=== PATIENT | female | born 1990 | race Caucasian/White ===

== ENCOUNTER 2019-11-25 11:48 | Emergency (ER) | payer SELFPAY ==
--- NOTE | 2019-11-25 11:52 | XR_ITS ---
WS: [id number] EXAM: RIGHT HIP: 2 VIEWS DATE OF EXAMINATION: 11/25/2019, 1335 hours COMPARISON: None. HISTORY: Patient is 29 years old with right hip pain. FINDINGS: The right hip joint is normal in appearance. No fracture, lytic or blastic process is seen. There are findings of minimal arthritis within the right SI joint. No soft tissue abnormality is seen. Enlarge d body habitus demonstrated. XR/XR hip RT 2-3V wo/w pel* [id number] IMPRESSION: Normal appearance to the right hip. No acute bony abnormality. Minimal arthriti s right hip joint. Enlarged body habitus.
[2019-11-25 12:01] VITALS: BP 118/63; PULSE 78; RESP 17; TEMP 36.7; O2SAT 98; BMI 40.7
--- NOTE | 2019-11-25 12:36 | W.ED.EXTPRO ---
HPI - Extremity Problem General: Chief complaint: Extremity Problem,Nontraumatic Stated complaint: r hip pain/losing feeling in leg Time Seen by Provider: 11/25/19 12:35 History of Present Illness: HPI Narrative: 29-year-old female patient presents to the emergency department with complaints of right hip pain. She reports hip pain since April, sustained a chip fracture . [facility] has been in [place] due to insurance reasons. Recently returned. She denies recent trauma or injury. [facility] was cleaning the house today when pain became too bad to tolerate. Reports prescription of Tylenol No. 3 has ended and is requesting medication for the pain. States pain has not changed. She reports since return to [place], she does not have money or insurance for medication. MD Complaint: extremity pain (Right hip) Onset (ago): month(s) (8 months) Pain Consistency: constant Location: right and lower extremity Severity scale (1-10): 5 Quality: stabbing and aching Radiation: none Relieving factors: immobilization and rest Exacerbating factors: range of motion and weight bearing Associated symptoms: Reports no associated symptoms; Deny chest pain or fever(s) Review of Systems General: Reports: 10 or more systems reviewed and unremarkable except in HPI and below Const: Denies: fever(s), chills or diaphoresis Eyes: Denies: blurry vision or eye redness ENMT: Denies: throat pain, dental pain or disequilibrium Card: Denies: chest pain, palpitations or irregular heart rhythm Resp: Denies: dyspnea, productive cough, non-productive cough or wheezing GI: Denies: abdominal pain, nausea or vomiting : Denies: difficulty voiding or dysuria Musc: Denies: back pain Skin/Breast: Denies: erythema or skin tenderness Neuro: Denies: headache(s), weakness in extremities or behavioral changes Tye/Lymph: Denies: easy bruising [facility] ED Female Reproductive History: Date of last menstrual period: 11/25/19 Physical Exam Const: COMMON NORMALS: no acute distress, patient oriented x3, healthy appearing and alert GENERAL APPEARANCE: cooperative, comfortable and well hydrated HENMT: COMMON NORMALS: normocephalic, Normal external nose present and moist oral mucous membranes HEAD & SCALP: normocephalic NOSE: Normal external nose present Eye: COMMON NORMALS: Equal, round and reactive pupils present and EOMs intact bilaterally GENERAL EYE: appearance normal, both eyes and all related structures PUPIL: Yes Equal, round and reactive pupils present Neck/C-Spine: COMMON NORMALS: full ROM and no lymphadenopathy GENERAL: Yes normal visual inspection and Yes trachea midline CERVICAL SPINE: Yes cervical ROM normal Lymph: LYMPHATIC: no lymphadenopathy noted Chest: COMMONS NORMALS: normal inspection of the chest Resp: COMMON NORMALS: normal respiratory effort and clear to auscultation bilaterally AUSCULTATION: clear to auscultation bilaterally Cardio: COMMON NORMALS: regular rhythm, S1 normal heart sound present and S2 normal heart sound present RHYTHM: regular rhythm HEART SOUNDS: S1 normal heart sound present and S2 normal heart sound present GI: COMMON NORMALS: Soft to palpation and non-tender INSPECTION: Yes normal to inspection PALPATION: Yes Soft to palpation : COMMON NORMALS: Yes no CVA tenderness BLADDER/KIDNEY EXAM: Yes no CVA tenderness Back/Pelvis: COMMON NORMALS: no CVA tenderness and thoracic and lumbar spine normal to inspection THORACIC SPINE/UPPER BACK: Yes normal to inspection, No pain with ROM and No thoracic spinal tenderness LUMBAR SPINE/LOWER BACK: Yes normal to inspection, No pain with ROM and No lumbar spinal tenderness SACROILIAC JOINTS: Yes SI joints normal OTHER: Negative pain to the SI joints, negative radiculopathy pain Extremity: COMMON NORMALS: normal to inspection and capillary refill normal RIGHT LOWER EXTREMITY: Yes hip joint Right hip: Yes inspection (Normal), Yes palpation (Lateral), Yes ROM (Limited abduction, flexion secondary to pain) and Yes neurovascular exam (Intact distally, negative right knee pain) Neuro: COMMON NORMALS: patient oriented x3 and no focal motor deficits SENSORIUM/ORIENTATION: Yes alert Psych: COMMON NORMALS: mental status grossly normal, Normal thought process present and cooperative ACTIVITY/MOTOR BEHAVIOR: Yes appropriate eye contact THOUGHT PROCESS: Normal thought process present Skin: COMMON NORMALS: no rashes or lesions noted and turgor normal GENERAL SKIN EXAM: no rashes or lesions noted and turgor normal Course Vital Signs: Vital signs: Vital Signs Temperature 97.6 F 11/25/19 14:35 Pulse Rate 84 11/25/19 14:35 Respiratory Rate 16 11/25/19 14:35 Blood Pressure 144/78 11/25/19 14:35 Pulse Oximetry 100 11/25/19 14:35 MDM - Extremity (Nontraumatic) Differential Diagnosis: Extremity Problem Differential Diagnosis: Likely herpes zoster, cellulitis (septic arthritis) and superficial thrombophlebitis Lab Data: Labs: Lab Results 11/25/19 Range/Units 13:00 Urine HCG, Qual Negative (Negative) Imaging Data^: Xray Ortho: Radiologist's impression: atient: Magdalena Mccelllan #: [id number] : 1990Acct#:[id number] Age/Sex: 29 / FADM Date: 11/25/19 Loc: ERRoom/Bed: Attending Dr: Ordering Provider/Ordering MD: Isaac Nava MD Date of Service: 11/25/19 Procedure(s): XR hip RT 2-3V wo/w pel* [id number] Accession Number(s): [id number] Report Number: [id number] WS: [id number] EXAM: RIGHT HIP: 2 VIEWS DATE OF EXAMINATION: 11/25/2019, 1335 hours COMPARISON: None. HISTORY: Patient is 29 years old with right hip pain. FINDINGS: The right hip joint is normal in appearance. No fracture, lytic or blastic process is seen. There are findings of minimal arthritis within the right SI joint. No soft tissue abnormality is seen. Enlarged body habitus demonstrated. XR/XR hip RT 2-3V wo/w pel* [id number] IMPRESSION: Normal appearance to the right hip. No acute bony abnormality. Minimal arthritis right hip joint. Enlarged body habitus. Dictated By:Alvarado Meredith MD Signed By:Alvarado Meredithigned Date/Time:11/25/19 1347 Discharge Plan Discharge Patient Disposition: Home Clinical Impression: Arthritis Chronic hip pain Qualifiers: Laterality: right Qualified Code(s): M25.551 - Pain in right hip Condition: Stable Prescriptions: New ibuprofen 800 mg tablet 800 mg PO TID PRN (Reason: pain) Qty: 20 RF: 0 No Action citalopram 40 mg tablet 40 mg PO DAILY RF: 0 dextroamphetamine-amphetamine 20 mg capsule,extended release 24hr 20 mg PO DAILY RF: 0 trazodone 100 mg Tablet 100 - 200 mg PO DAILY PRN (Reason: Sleep) RF: 0 montelukast 10 mg tablet 10 mg PO DAILY RF: 0 Symbicort 80-4.5 mcg/actuation Hfa Aerosol Inhaler See Rx Instructions .ROUTE .COMPLEX RF: 0 Referrals: Dennis Burnett MD [Primary Care Provider] - Discharge Diet: Usual diet Discharge Activity: Resume usual activity Patient Instructions: Osteoarthritis (ED), Arthralgia (ED) Activity Restrictions/Additional Instructions: Take ibuprofen with food as needed for pain May apply ice or warm moist heat to the affected area, right hip as needed for pain You will need to follow-up with your primary care for evaluation of chronic right hip pain Return to the emergency department if you develop fever, worsening right hip pain or discoloration or swelling of the right lower extremity Discharge Date/Time: 11/25/19 14:36 Coding Level of Care Code ED Supply Service Worker for Chg Fwd Exam Comprehensive
[2019-11-25 14:18] VITALS: BP 142/78; PULSE 63; RESP 16; TEMP 36.4; O2SAT 98
[2019-11-25 14:35] VITALS: BP 144/78; PULSE 84; RESP 16; TEMP 36.4; O2SAT 100
--- NOTE | 2019-11-27 13:58 | DCPLANNER ---
manager utilization management had message to speak with patient about getting a primary care physician. manager utilization management spoke with patient, and she stated that she did not have insurance, and could not afford to go to the doctor. manager utilization management offered to send patient the senior financial reporting accountant for the hospital and primary care. Patient stated that she would like to have the applications sent to her. Patient stated that she would fill out the applications and turn them back in. manager utilization management told patient that if she changed her mind and wanted to be set up with a primary care, that director case would be happy to help patient with that.
== END 2019-11-25 14:36 | disposition home or self-care (01) ==
PROVIDERS: Emergency Provider Nurse Practitioner Family; PCP Family Medicine
DX: M16.11 Unilateral primary osteoarthritis, right hip (principal); G89.29 Other chronic pain
CPT/HCPCS: 12345; 73502; 81025; 99282; 99283

== ENCOUNTER 2021-04-11 07:56 | Emergency (ER) | payer BC, MEDICAID, SELFPAY ==
[2021-04-11 08:00] VITALS: BP 130/99; PULSE 110; RESP 22; TEMP 37.1; O2SAT 96; BMI 47.2
--- NOTE | 2021-04-11 08:19 | XRR_ITS ---
PROCEDURE INFORMATION: Exam: XR Chest Exam date and time: 04/11/2021 8:19 AM Age: 30 years old Clinical indication: Cough and dyspnea; Additional info: Cough/dyspnea TECHNIQUE: Imaging protocol: XR of the chest. Views: 1 view. COMPARISON: CR Chest 1 [place] [id number] 01/28/2019 5:39 PM FINDINGS: Lungs: Unremarkable. No consolidation. Pleural spaces: Unremarkable. No pleural effusion. No pneumothorax. Heart/Mediastinum: Unremarkable. No cardiomegaly. Bones/joints: Unremarkable. XR/XR chest 1V portable [id number] IMPRESSION: No acute findings.
--- NOTE | 2021-04-11 08:22 | W.ED.COVID ---
HPI - COVID General: Chief Complaint: Shortness of Breath/Dyspnea Stated Complaint: sob Time Seen by Provider: 04/11/21 07:58 Triage information: Has fever, cough or shortness of breath. No known COVID + exposure last 14 days History of Present Illness: HPI Narrative: 30 year old female presents with shortness of breath. Has been going on for 3 days. Reports coughing, body aches, fatigue, nausea, and dry heaving. Denies sore throat and fever. Has not had COVID, no known COVID exposures. Has had COVID vaccine, has not had booster. Reports having asthma and has been taking her inhaler. Denies smoking. Prior covid testing: unknown if previously tested COVID 19 common symptoms: positive productive cough, dyspnea, fatigue, body aches and nausea; negative fever(s), throat pain, nasal congestion, vomiting or diarrhea COVID 19 other sytmptoms: negative chest pain COVID Results: SARS-CoV-2 (PCR) Detected (NOT DETECT) A 04/11/21 08:44 04/11/21 Coronavirus Type 229E (PCR) Not detected (NOT DETECT) 04/11/21 08:44 04/11/21 Review of Systems Const: Reports: body aches and fatigue; Denies: fever(s) ENMT: Reports: nasal discharge; Denies: throat pain or nasal congestion Card: Denies: chest pain or edema Resp: Reports: dyspnea and productive cough; Denies: hemoptysis GI: Reports: nausea; Denies: abdominal pain, vomiting, hematemesis, coffee ground emesis, diarrhea, constipation, bloating, hematochezia or melena : Denies: flank pain, difficulty voiding, dysuria, urinary frequency or urinary urgency Skin/Breast: Denies: rash or pruritus PFS ED PFSH: Medical History (Updated 04/13/21 @ 05:18 by Philip West DO) Asthma Borderline personality disorder Cocaine use disorder, severe, in sustained remission COVID Generalized anxiety disorder Major depressive disorder, recurrent, moderate Psychiatric care Social History Smoking and tobacco status: never smoked Alcohol intake: never Current gender identity: Female Female Reproductive History: Date of last menstrual period: 11/25/19 Physical Exam Const: COMMON NORMALS: no acute distress GENERAL APPEARANCE: cooperative and comfortable ORIENTATION/CONSCIOUSNESS: Yes awake, Yes oriented to person, Yes oriented to place and Yes oriented to time HENMT: COMMON NORMALS: normocephalic, atraumatic and hearing grossly normal bilaterally HEAD & SCALP: normocephalic and atraumatic Neck/C-Spine: COMMON NORMALS: no JVD Resp: COMMON NORMALS: normal respiratory effort, No retractions, No use of accessory muscles and clear to auscultation bilaterally AUSCULTATION: clear to auscultation bilaterally Cardio: COMMON NORMALS: no JVD, regular rate, regular rhythm and No murmurs present (Cardio) RATE: regular rate RHYTHM: regular rhythm GI: COMMON NORMALS: Soft to palpation and No hepatosplenomegaly present AUSCULTATION: Yes normoactive bowel sounds PALPATION: Yes Soft to palpation, No Tenderness to palpation present (GI), No Guarding due to palpation present (GI) and Yes No hepatosplenomegaly present Extremity: COMMON NORMALS: normal to inspection, capillary refill normal, no clubbing, cyanosis or edema, no calf tenderness and no pedal edema Neuro: SENSORIUM/ORIENTATION: Yes oriented to person, Yes oriented to place and Yes oriented to time Skin: COMMON NORMALS: no rashes or lesions noted GENERAL SKIN EXAM: no rashes or lesions noted Course Vital Signs: Vital signs: Vital Signs Temperature 98.8 F 04/11/21 08:00 Pulse Rate 100 04/11/21 11:00 Respiratory Rate 21 H 04/11/21 11:00 Blood Pressure 175/75 04/11/21 11:00 Pulse Oximetry 94 04/11/21 11:00 MDM - COVID MDM Narrative: Medical decision making narrative: Discharge home with dexamethasone and albuterol. At the time of discharge presumptive diagnosis was asthma exacerbation and clinical diagnosis of COVID-19. COVID-19 result returned later and was confirmed. We will have case management set her up for outpatient monoclonal antibodies. Lab Data: Labs: Lab Results 04/11/21 04/11/21 04/11/21 08:44 08:44 09:13 WBC 5.3 10^3/uL 10^3/ uL (4.0-10.0) RBC 4.43 10^6/uL 10^6 /uL (4.1-5.3) Hgb 12.8 g/dL g/dL (11.5-15.3) Hct 39.2 % % (37.0-47.0) MCV 88.5 fl fl (81-99) MCH 28.9 pg pg (28.0-34.0) MCHC 32.7 g/dL g/dL (30.0-36.0) RDW 13.7 % % (12.1-15.1) Plt Count 220 10^3/cmm 10^3 /cmm (130-400) MPV 10.1 fL fL (7.4-10.4) Neut % (Auto) 70.1 % % Lymph % (Auto) 12.0 % % [place] % (Auto) 8.1 % % Eos % (Auto) 9.0 % % Baso % (Auto) 0.6 % % Neut # (Auto) 3.74 10^3/uL 10^3 /uL (1.8-7.7) Lymph # (Auto) 0.6 10^3/uL L 10^ 3/uL (0.8-4.8) [place] # (Auto) 0.4 10^3/uL 10^3/ uL (0.2-0.9) Eos # (Auto) 0.5 10^3/uL 10^3/ uL (0.0-0.8) Baso # (Auto) 0.0 10^3/uL 10^3/ uL (0.0-0.1) Nucleated RBC % (a uto) 0 % % Nucleated RBCs # 0.0 /100WBC /100W BC Specimen Type Arterial Sample Site Radial, left ABG pH 7.48 H (7.35-7.45) ABG pCO2 30.2 mmHg L mmHg (35-45) ABG pO2 65.1 mmHg L mmHg (80.0-100.0) ABG HCO3 22.6 mmol/L mmol/ L (22-26) ABG O2 Saturation 95.6 ABG Base Excess 0.0 mmol/L mmol/L (-2.0-2.0) Suhail Test Pos A-a O2 Gradient 6.1 mmHg mmHg (5-10) Hematocrit 38.3 % % (37-47) Hgb O2 Saturation 93.9 % L % (95-100) Carboxyhemoglobin 1.0 %THgb %THgb (0.4-20.1) Methemoglobin 0.7 % % (0.4-1.5) Total Hemoglobin 12.5 g/dL g/dL (12-16) Sodium 139.0 mmol/L mmol /L (131-143) Potassium 3.4 mmol/L L mmol /L (3.5-5.0) Glucose 104.0 mg/dL mg/dL (70-115) Ionized Calcium 1.2 mmol/L mmol/L (1.1-1.4) O2 Delivery Device Room air FiO2 21.0 % % Spray Maker ID [id number] Coronavirus 229E ( PCR) Not detected (NOT DETECT) SARS-CoV-2 (PCR) Detected A (NOT DETECT) COVID Results: SARS-CoV-2 (PCR) Detected (NOT DETECT) A 04/11/21 08:44 04/11/21 Coronavirus Type 229E (PCR) Not detected (NOT DETECT) 04/11/21 08:44 04/11/21 Discharge Plan Discharge Patient Disposition: Home Clinical Impression: Asthma, Clinical diagnosis of COVID-19 Condition: Stable Prescriptions: New dexamethasone 6 mg tablet 6 mg PO DAILY Qty: 7 RF: 0 albuterol sulfate 90 mcg/actuation HFA aerosol inhaler 2 inh INHALATION Q4H PRN (Reason: shortness of breath or wheezing) Qty: 18 RF: 0 Discontinued methylprednisolone [Medrol (Vivek)] 4 mg tablets,dose pack See Rx Instructions PO PER PKG DIR Qty: 21 RF: 0 No Action trazodone 100 mg tablet 100 mg PO .HS PRN (Reason: Sleep) Qty: 30 RF: 3 citalopram 40 mg tablet 40 mg PO DAILY 30 Days Qty: 30 RF: 3 ferrous fumarate 325 mg (106 mg iron) tablet 325 mg PO DAILY RF: 0 montelukast 10 mg tablet 10 mg PO DAILY RF: 0 Symbicort 80-4.5 mcg/actuation Hfa Aerosol Inhaler See Rx Instructions .ROUTE .COMPLEX RF: 0 Discharge Orders: Discharge ED (Routine); Ordered 04/11/21 Ordered By: Philip West Other Ambulatory Orders: Request for MCA (Routine) Timeframe: 1 Day Facility: [facility] - Location[facility] Ordered By: Philip West Discharge Diet: Usual diet Discharge Activity: Limit activity as instructed Patient Instructions: Opioid Safety Stand Alone Forms: Work/School Release Coding Level of Care Code ED Regulatory Affairs Director for Chg Fwd Exam Comprehensive
[2021-04-11 09:08] VITALS: O2SAT 96; O2SAT 98
--- NOTE | 2021-04-11 09:12 | PC.NURSE ---
PT PLACED ON CONTINUOUS SPO2, NIBP, AND CM.
[2021-04-11 09:24] LABS: ABG PCO2 30.2 mmHg (35-45); ABG PH Result 7.48 (7.35-7.45); Alveolar-Arterial Oxygen Gradi 6.1 mmHg (5-10); Arterial Blood Gas Hematocrit 38.3 % (37-47); Blood Gas Allen Test Pos; Blood Gas Operator Identificat AMH; Blood Gas Sample Site Radial, left; Blood Gas Sample Type Arterial; HCO3 ABG 22.6 mmol/L (22-26); HGB O2 Sat 93.9 % (95-100); Ionized Calcium Level - ABG 1.2 mmol/L (1.1-1.4); Methemoglobin 0.7 % (0.4-1.5); Oxygen Device ROOM AIR; Oxygen Saturation ABG 95.6; PO2 ABG 65.1 mmHg (80.0-100.0); Potassium Level - ABG 3.4 mmol/L (3.5-5.0); Total Hemoglobin 12.5 g/dL (12-16)
[2021-04-11 09:33] LABS: Basophils % 0.6 %; Eosinophils # 0.5 10^3/uL (0.0-0.8); Hematocrit 39.2 % (37.0-47.0); Hemoglobin 12.8 g/dL (11.5-15.3); Lymphocytes # 0.6 10^3/uL (0.8-4.8); Mean Corpuscular HGB Conc 32.7 g/dL (30.0-36.0); Mean Corpuscular Hemoglobin 28.9 pg (28.0-34.0); Mean Corpuscular Volume 88.5 fl (81-99); Mean Platelet Volume 10.1 fL (7.4-10.4); Monocytes # 0.4 10^3/uL (0.2-0.9); Monocytes % 8.1 %; Neutrophils # 3.74 10^3/uL (1.8-7.7); Neutrophils % 70.1 %; Nucleated Red Blood Cells % 0 %; Platelet Count 220 10^3/cmm (130-400); Red Blood Count 4.43 10^6/uL (4.1-5.3); Red Cell Distribution Width 13.7 % (12.1-15.1); White Blood Count 5.3 10^3/uL (4.0-10.0)
[2021-04-11 10:00] VITALS: BP 122/72; PULSE 102; RESP 21; O2SAT 96
[2021-04-11 11:00] VITALS: BP 175/75; PULSE 100; RESP 21; O2SAT 94
[2021-04-11 11:17] LABS: Adenovirus Not Detected (NOT DETECT); Chlamydia Pneumoniae Not Detected (NOT DETECT); Coronavirus 229E,HKU1,NL63,OC4 Not Detected (NOT DETECT); Human Metapneumovirus Not Detected (NOT DETECT); Human Rhinovirus/Enterovirus Not Detected (NOT DETECT); Influenza A Not Detected (NOT DETECT); Influenza A H1 Not Detected (NOT DETECT); Influenza A H1-2009 Not Detected (NOT DETECT); Influenza A H3 Not Detected (NOT DETECT); Influenza B Not Detected (NOT DETECT); Mycoplasma Pneumoniae Not Detected (NOT DETECT); Parainfluenza Virus Type 1 Not Detected (NOT DETECT); Parainfluenza Virus Type 2 Not Detected (NOT DETECT); Parainfluenza Virus Type 3 Not Detected (NOT DETECT); Parainfluenza Virus Type 4 Not Detected (NOT DETECT); Respiratory Syncytial Virus A Not Detected (NOT DETECT); Respiratory Syncytial Virus B Not Detected (NOT DETECT); SARS-COV-2 Detected (NOT DETECT)
[2021-04-11] MEDS: dexamethasone 10 mg/mL INJ IVP (11:18)
--- NOTE | 2021-04-20 15:35 | DCPLANNER ---
manager medicare had message to speak with patient at this time about getting established with a primary care physician.
== END 2021-04-11 11:26 | disposition home or self-care (01) ==
PROVIDERS: Emergency Provider Family Medicine
DX: U07.1 COVID-19 (principal); J45.909 Unspecified asthma, uncomplicated
CPT/HCPCS: 36600; 71045; 80051; 82330; 82805; 85025; 87635; 96374; 99284; J1100

== ENCOUNTER 2021-05-02 19:16 | Emergency (ER) | payer BC, MEDICAID, SELFPAY ==
[2021-05-02 19:38] VITALS: BP 136/77; PULSE 99; RESP 20; TEMP 36.7; O2SAT 95
--- NOTE | 2021-05-02 20:23 | ED_ITS ---
HPI - COVID General: Chief Complaint: COVID symptoms Stated Complaint: covid +,abd pain that goes to [facility] back Time Seen by Provider: 05/02/21 20:14 Triage information: Has fever, cough or shortness of breath . No known COVID + exposure last 14 days History of Present Illness: Patient is a 30-year-old female who comes to the ED with abdominal pain. Patient has a past medical history of asthma, anxiety, depression. Patient was seen here in the ED back on April 11 and diagnosed with COVID-19. Covid symptoms are improving but she still has a little bit of nasal congestion, cough and mild shortness of breath. Patient says the abdominal pain started approximately 3 days ago. Pain is located in the right lower quadrant. She rates the pain currently 9 out of 10. She has had nausea since onset of symptoms and a decreased appetite. Denies any emesis. Patient did state that she was recently diagnosed with an STD, which she thinks was trichomonas and was put on a 7-day course of antibiotic. Patient took her last dose of antibiotic yesterday. Her menstrual period just ended yesterday May 01. COVID 19 common symptoms: positive non-productive cough, dyspnea (Continued SOB since 04/11 when diagnosed with Covid), nausea and diarrhea (chronic issue-no acute change); negative fever(s), chills, productive cough, fatigue, headache(s), throat pain, nasal congestion or vomiting COVID 19 other sytmptoms: negative chest pain COVID Results: SARS-CoV-2 (PCR) Detected (NOT DETECT) A 04/11/21 08:44 04/11/21 Coronavirus Type 229E (PCR) Not detected (NOT DETECT) 04/11/21 08:44 04/11/21 Review of Systems Const: Denies: fever(s), chills or fatigue Eyes: Denies: change in vision or eye discomfort ENMT: Denies: throat pain, odynophagia, nasal discharge or nasal congestion Card: Denies: chest pain, palpitations, edema, swelling of feet/ankles, dyspnea on exertion or orthopnea Resp: Reports: dyspnea (Continued SOB since 04/11 when diagnosed with Covid) and non-productive cough; Denies: productive cough GI: Reports: abdominal pain, nausea and diarrhea (chronic issue-no acute change); Denies: vomiting, constipation or hematochezia : Denies: flank pain, dysuria, hematuria, vaginal bleeding or vaginal discharge Musc: Denies: neck pain, back pain or extremity swelling Skin/Breast: Denies: rash or new lesions Neuro: Denies: headache(s), numbness in extremities or weakness in extremities PFSH ED PFSH: Medical History Asthma Borderline personality disorder Cocaine use disorder, severe, in sustained remission COVID Generalized anxiety disorder Major depressive disorder, recurrent, moderate Psychiatric care Social History Smoking and tobacco status: never smoked Alcohol intake: never Current gender identity: Female Female Reproductive History: Date of last menstrual period: 11/25/19 Physical Exam Const: COMMON NORMALS: patient oriented x3 GENERAL APPEARANCE: cooperative HENMT: COMMON NORMALS: normocephalic HEAD & SCALP: normocephalic MOUTH: Normal oral and palatal mucosa present THROAT: posterior oropharynx normal and uvula midline Eye: GENERAL EYE: appearance normal, both eyes and all related structures Neck/C-Spine: COMMON NORMALS: supple GENERAL: Yes normal visual inspection Resp: COMMON NORMALS: normal respiratory effort, No retractions, No use of accessory muscles and clear to auscultation bilaterally AUSCULTATION: clear to auscultation bilaterally Cardio: COMMON NORMALS: regular rate, regular rhythm, S1 normal heart sound present, S2 normal heart sound present, No gallops present (Cardio), No clicks present (Cardio), No murmurs present (Cardio) and Peripheral pulses 2+ throughout RATE: regular rate RHYTHM: regular rhythm HEART SOUNDS: S1 normal heart sound present and S2 normal heart sound present PERIPHERAL PULSES: Peripheral pulses 2+ throughout GI: COMMON NORMALS: Normal to inspection, nondistended, normoactive bowel sounds present, Soft to palpation and no masses INSPECTION: Yes central obesity PALPATION: Yes Soft to palpation and Yes Tenderness to palpation present (GI) Details: RLQ (Positive McBurney's point) : COMMON NORMALS: Yes no CVA tenderness BLADDER/KIDNEY EXAM: Yes no CVA tenderness Back/Pelvis: COMMON NORMALS: no CVA tenderness Extremity: GENERAL: Yes normal exam except as noted Neuro: COMMON NORMALS: patient oriented x3 GAIT: Yes Normal gait present Skin: GENERAL SKIN EXAM: dry skin Course 2 Vital Signs: Vital signs: Vital Signs Temperature 98.5 F 05/02/21 22:43 Pulse Rate 89 05/02/21 22:43 Respiratory Rate 18 05/02/21 22:43 Blood Pressure 135/79 05/02/21 22:43 Pulse Oximetry 99 05/02/21 22:43 [facility] - COVID Medical Decision Making Patient is a 30-year-old female comes to the ED with abdominal pain, nausea and vomiting. Patient also was diagnosed with COVID-19 on April 11 and is still having a little bit of cough and shortness of breath. Vitals stable. Exam of patient shows a nontoxic appearing patient in no acute distress. She does have some periumbilical tenderness upon palpation. Labs were unremarkable. hCG negative. CT of abdomen pelvis showed no acute intra-abdominal findings, but it did highlight possible atelectasis of bilateral lower lungs. Patient diagnosed with abdominal pain and upper respiratory symptoms. She was discharged home with a prescription for azithromycin and Zofran for nausea. Return to ED precautions given. Follow-up with PCP in 5 to 7 days reevaluation. Patient understood and agreed with plan. Lab Data I reviewed the patient's lab results. : 05/02/21 21:06 05/02/21 21:06 Radiology Impressions Abdomen/Pelvis CT 05/02/21 20:57 IMPRESSION: 1. No acute intra-abdominal findings. 2. Minimal nonspecific opacity in both lung bases. Probable subsegmental atelectasis. Atypical infection is not excluded. Laboratory Results WBC 7.3 10^3/uL (4.0-10.0) 05/02/21 21:06 RBC 4.39 10^6/uL (4.1-5.3) 05/02/21 21:06 Hgb 12.6 g/dL (11.5-15.3) 05/02/21 21:06 Hct 39.2 % (37.0-47.0) 05/02/21 21:06 MCV 89.3 fl (81-99) 05/02/21 21:06 MCH 28.7 pg (28.0-34.0) 05/02/21 21:06 MCHC 32.1 g/dL (30.0-36.0) 05/02/21 21:06 RDW 14.1 % (12.1-15.1) 05/02/21 21:06 Plt Count 228 10^3/cmm (130-400) 05/02/21 21:06 MPV 10.3 fL (7.4-10.4) 05/02/21 21:06 Neut % (Auto) 53.2 % 05/02/21 21:06 Lymph % (Auto) 28.4 % 05/02/21 21:06 [place] % (Auto) 10.2 % 05/02/21 21:06 Eos % (Auto) 7.5 % 05/02/21 21:06 Baso % (Auto) 0.4 % 05/02/21 21:06 Neut # (Auto) 3.88 10^3/uL (1.8-7.7) 05/02/21 21:06 Lymph # (Auto) 2.1 10^3/uL (0.8-4.8) 05/02/21 21:06 [place] # (Auto) 0.7 10^3/uL (0.2-0.9) 05/02/21 21:06 Eos # (Auto) 0.6 10^3/uL (0.0-0.8) 05/02/21 21:06 Baso # (Auto) 0.0 10^3/uL (0.0-0.1) 05/02/21 21:06 Nucleated RBC % (auto) 0 % 05/02/21 21:06 Nucleated RBCs # 0.0 /100WBC 05/02/21 21:06 Sodium 138 mmol/L (136-145) 05/02/21 21:06 Potassium 3.5 mmol/L (3.5-5.1) 05/02/21 21:06 Chloride 104 mmol/L (98-107) 05/02/21 21:06 Carbon Dioxide 19 mmol/L (22-29) L 05/02/21 21:06 Anion Gap 18.5 (5-19) 05/02/21 21:06 BUN 11 mg/dL (6-20) 05/02/21 21:06 Creatinine 0.7 mg/dL (0.5-0.9) 05/02/21 21:06 GFR Calculation 98.3 mL/min (90-130) 05/02/21 21:06 Glucose 105 mg/dL (65-115) 05/02/21 21:06 Calculated Osmolality 286 mOsm/kg (285-295) 05/02/21 21:06 Calcium 9.1 mg/dL (8.5-10.5) 05/02/21 21:06 Total Bilirubin 0.2 mg/dL (0.15-1.2) 05/02/21 21:06 AST 19 U/L (0-32) 05/02/21 21:06 ALT 21 U/L (0-33) 05/02/21 21:06 Alkaline Phosphatase 81 IU/L (35-105) 05/02/21 21:06 Total Protein 6.8 g/dL (6.6-8.7) 05/02/21 21:06 Albumin 4.3 g/dL (3.5-5.2) 05/02/21 21:06 Globulin 2.5 g/dL (1.3-4.6) 05/02/21 21:06 Lipase 24 U/L (13-60) 05/02/21 21:06 HCG, Qual Negative (Negative) 05/02/21 21:06 Urine Color Yellow (Yellow) 05/02/21 21:10 Urine Appearance Clear (CLEAR) 05/02/21 21:10 Urine pH 5 (5-7) 05/02/21 21:10 Ur Specific [place] 1.030 (1.005-1.030) 05/02/21 21:10 Urine Protein Neg (Negative) 05/02/21 21:10 Urine Glucose (UA) Norm (Normal) 05/02/21 21:10 Urine Ketones Negative (Negative) 05/02/21 21:10 Urine Blood Neg (Negative) 05/02/21 21:10 Urine Nitrate Negative (Negative) 05/02/21 21:10 Urine Bilirubin Neg (Negative) 05/02/21 21:10 Urine Urobilinogen 1 mg/dL (Negative) H 05/02/21 21:10 Ur Leukocyte Esterase Negative (Negative) 05/02/21 21:10 SARS-CoV-2 (PCR) Detected (NOT DETECT) A 04/11/21 08:44 04/11/21 Coronavirus Type 229E (PCR) Not detected (NOT DETECT) 04/11/21 08:44 04/11/21 Discharge Plan Discharge Patient Disposition: Home Clinical Impression: Upper respiratory symptom Abdominal pain Qualifiers: Abdominal location: right lower quadrant Qualified Code(s): R10.31 - Right lower quadrant pain Condition: Stable Prescriptions: New azithromycin 250 mg tablet See Rx Instructions .ROUTE .COMPLEX Qty: 6 0RF Rx Instructions: take 500 mg today (day 1), then 250 mg for 4 days (days 2-5) ondansetron 4 mg tablet,disintegrating 4 mg PO Q8H PRN (Reason: nausea and vomiting) Qty: 20 0RF No Action trazodone 100 mg tablet 100 mg PO .HS PRN (Reason: Sleep) Qty: 30 3RF citalopram 40 mg tablet 40 mg PO DAILY 30 Days Qty: 30 3RF ferrous fumarate 325 mg (106 mg iron) tablet 325 mg PO DAILY 0RF montelukast 10 mg tablet 10 mg PO DAILY 0RF Symbicort 80-4.5 mcg/actuation Hfa Aerosol Inhaler See Rx Instructions .ROUTE .COMPLEX 0RF Rx Instructions: inhaled PT UNSURE OF DIRECTIONS, BUT HAS DIRECTIONS AT HOME. dexamethasone 6 mg tablet 6 mg PO DAILY Qty: 7 0RF albuterol sulfate 90 mcg/actuation HFA aerosol inhaler 2 inh INHALATION Q4H PRN (Reason: shortness of breath or wheezing) Qty: 18 0RF Discharge Orders: Discharge ED (Routine); Ordered 05/02/21 Ordered By: Vinayak Lantigua Discharge Diet: Regular Discharge Activity: Resume usual activity Patient Instructions: Upper Respiratory Infection (ED), Abdominal Pain (ED) Activity Restrictions/Additional Instructions: Follow-up with medical provider as directed in 5 to 7 days reevaluation.Take medications as prescribed. Take [id number] Tylenol or Motrin for any pain. Remember to drink a lot of fluids and stay hydrated especially when sick. to the ER or your medical provider if condition worsens. Please read and understand discharge instructions. Thank you for choosing [facility] for your healthcare needs today. Please realize this is an emergency room and that we are providing you with a medical screening exam and this may not be complete and all inclusive of all the testing and or work up that you may need to determine your ailment or severity of your illness. It is very important that you follow up as instructed or that you return to the Emergency Department should you have concerns or if your condition changes or worsens in any way. Coding Level of Care Code ED Non Destructive Testing Supervisor for Chg Fwd Exam Comprehensive
--- NOTE | 2021-05-02 20:57 | CTR_ITS ---
PROCEDURE INFORMATION: Exam: CT Abdomen And Pelvis With Contrast Exam date and time: 05/02/2021 8:57 PM Age: 30 years old Clinical indication: Abdominal pain; Localized; Right lower quadrant (rlq); Prior surgery; Surgery date: 6+ months; Surgery type: C-sect; Patient HX: C/O rlq abd pain and nausea; Additional info: Rlq abdominal pain, nausea, decreased appetite TECHNIQUE: Imaging protocol: Computed tomography of the abdomen and pelvis with contrast. Radiation optimization: All CT scans at this facility use at least one of these dose optimization techniques: automated exposure control; mA and/or kV adjustment per patient size (includes targeted exams where dose is matched to clinical indication); or iterative reconstruction. Contrast material: OMNI 300; Contrast volume: 95 ml; Contrast route: INTRAVENOUS (IV); COMPARISON: CR XR hip RT 2-3V wo/w pel* [id number] 11/25/2019 1:33 PM RADIATION DOSE METRICS: Total DLP (mGy-cm): 1910.6 FINDINGS: Lungs: There is minimal nonspecific opacity in both lung bases. Liver: The liver is normal. Gallbladder and bile ducts: The gallbladder is normal. There is no biliary dilation. Pancreas: The pancreas is unremarkable. Spleen: The spleen is unremarkable. Adrenal glands: The adrenal glands are unremarkable. Kidneys and ureters: The kidneys are unremarkable. No hydronephrosis or stones. No ureteral dilation. Stomach and bowel: The stomach is decompressed, preventing meaningful evaluation of wall thickness. The small bowel is nondilated. The colon is unremarkable. Appendix: The appendix is normal. Intraperitoneal space: There is no free air or significant intraperitoneal free fluid. Vasculature: The aorta is unremarkable. There is no aneurysm. The portal, splenic and superior mesenteric veins are patent. Lymph nodes: There is no lymphadenopathy in the retroperitoneum, mesentery, pelvis or inguinal regions. Urinary bladder: The urinary bladder is decompressed, preventing meaningful evaluation of wall thickness. Reproductive: The uterus is unremarkable. There is no adnexal mass or large cyst. Bones/joints: Unremarkable. No acute fracture. Soft tissues: The abdominal wall is intact. CT/CT abdomen pelvis w con* [id number] IMPRESSION: 1. No acute intra-abdominal findings. 2. Minimal nonspecific opacity in both lung bases. Probable subsegmental atelectasis. Atypical infection is not excluded.
[2021-05-02 21:09] VITALS: RESP 18
[2021-05-02 21:17] VITALS: RESP 18
[2021-05-02] MEDS: morphine 4 mg/mL SDV 1 mL IVP ×2 (21:17→22:33)
[2021-05-02] MEDS: sodium chloride 0.9% 500 ML 999 ML IV (21:18)
[2021-05-02] MEDS: ondansetron 2 mg/ML SDV 2 mL 4 MG IVP (21:18)
[2021-05-02 21:26] LABS: Basophils % 0.4 %; Eosinophils # 0.6 10^3/uL (0.0-0.8); Eosinophils % 7.5 %; Hematocrit 39.2 % (37.0-47.0); Hemoglobin 12.6 g/dL (11.5-15.3); Lymphocytes # 2.1 10^3/uL (0.8-4.8); Lymphocytes % 28.4 %; Mean Corpuscular HGB Conc 32.1 g/dL (30.0-36.0); Mean Corpuscular Hemoglobin 28.7 pg (28.0-34.0); Mean Corpuscular Volume 89.3 fl (81-99); Mean Platelet Volume 10.3 fL (7.4-10.4); Monocytes # 0.7 10^3/uL (0.2-0.9); Monocytes % 10.2 %; Neutrophils # 3.88 10^3/uL (1.8-7.7); Neutrophils % 53.2 %; Nucleated Red Blood Cells % 0 %; Platelet Count 228 10^3/cmm (130-400); Red Blood Count 4.39 10^6/uL (4.1-5.3); Red Cell Distribution Width 14.1 % (12.1-15.1); White Blood Count 7.3 10^3/uL (4.0-10.0)
[2021-05-02 21:39] LABS: Add Urine Microscopic? NO; Charge for UA Resulting for Rev
[2021-05-02 21:43] LABS: HCG, Serum Qual Negative (Negative)
[2021-05-02 21:43] LABS: Bilirubin Urine Neg (Negative); Blood Urine Neg (Negative); Glucose Urine UA Norm (Normal); Ketones Urine Negative (Negative); Leukocyte Esterase Urine Negative (Negative); Nitrate Urine Negative (Negative); Protein Urine Neg (Negative); Urine Appearance Clear (CLEAR); Urine Color Yellow (Yellow); Urobilinogen Urine 1 mg/dL (Negative); pH Urine 5 (5-7)
[2021-05-02 21:45] LABS: Alanine Aminotransferase 21 U/L (0-33); Albumin Level 4.3 g/dL (3.5-5.2); Alkaline Phosphatase 81 IU/L (35-105); Anion Gap 18.5 (5-19); Aspartate Amino Transferase 19 U/L (0-32); Blood Urea Nitrogen 11 mg/dL (6-20); Calcium 9.1 mg/dL (8.5-10.5); Carbon Dioxide 19 mmol/L (22-29); Chloride 104 mmol/L (98-107); Globulin 2.5 g/dL (1.3-4.6); Glomerular Filtration Rate 98.3 mL/min (90-130); Glucose 105 mg/dL (65-115); Lipase 24 U/L (13-60); Osmolality Calculated 286 mOsm/kg (285-295); Potassium 3.5 mmol/L (3.5-5.1); Sodium 138 mmol/L (136-145); Total Bilirubin 0.2 mg/dL (0.15-1.2); Total Protein 6.8 g/dL (6.6-8.7)
[2021-05-02] MEDS: iohexol 300 mg/mL 100 mL Btl IV (21:50)
[2021-05-02 22:33] VITALS: RESP 18
[2021-05-02 22:43] VITALS: BP 135/79; PULSE 89; RESP 18; TEMP 36.9; O2SAT 99
== END 2021-05-02 22:44 | disposition home or self-care (01) ==
PROVIDERS: Emergency Provider Physician Assistant
DX: R10.31 Right lower quadrant pain (principal); R05.9 Cough, unspecified; R06.00 Dyspnea, unspecified
CPT/HCPCS: 74177; 80053; 81003; 83690; 84703; 85025; 96374; 96375; 96376; 99284; J2270; J2405; J7040; Q9967

== ENCOUNTER 2021-06-18 18:24 | Emergency (ER) | payer BC, MEDICAID, SELFPAY ==
[2021-06-18] VITALS (14 sets, daily range): BP systolic 112–157; BP diastolic 56–94; PULSE 72–112; RESP 17–24; TEMP 37.9; O2SAT 91–98; BMI 47.0
--- NOTE | 2021-06-18 18:30 | XRR_ITS ---
PROCEDURE INFORMATION: Exam: XR Chest Exam date and time: 06/18/2021 5:48 PM Age: 31 years old Clinical indication: Cough and shortness of breath; Additional info: Sob/cough TECHNIQUE: Imaging protocol: XR of the chest. Views: 1 view. COMPARISON: CR XR chest 1V portable [id number] 04/11/2021 9:11 AM FINDINGS: Lungs: Faint ground-glass opacity is present in the right upper lobe. The lungs are otherwise clear. Pleural spaces: Unremarkable. No pleural effusion. No pneumothorax. Heart/Mediastinum: Unremarkable. No cardiomegaly. Bones/joints: Unremarkable. XR/XR chest 1V portable [id number] IMPRESSION: Possible early right upper lobe pneumonia.
--- NOTE | 2021-06-18 19:12 | ED_ITS ---
HPI - URI/Sore Throat General: Chief Complaint: Shortness of Breath/Dyspnea Stated Complaint: shortness of breath cough Time Seen by Provider: 06/18/21 18:27 Source: patient Mode of arrival: ambulatory Limitations: no limitations History of Present Illness: Patient is a 31-year-old female with a history of morbid obesity and asthma here for concerns of shortness of breath, cough, fevers, body aches, headache, and nasal congestion/sinus pain/pressure over the past 3 days. She has not sure how high her temperatures have gotten at home. She states symptoms started after a trip to [place]. Patient states her asthma is usually controlled with albuterol inhalers. She is not having any abdominal pain, vomiting, or diarrhea. No fevers. MD elicited complaint: fever, cough and nasal congestion Pertinent past history: asthma Onset (ago): day(s) Consistency: constant Description of mucous: clear Able to tolerate fluids by mouth: Yes Exacerbating factors: nothing Relieving factors: nothing Associated symptoms: Reports chills, fever(s), headache(s), nasal congestion and sinus pain; Deny abdominal pain, chest pain, diarrhea, ear or mastoid pain, nausea or vomiting Treatments prior to arrival: none Review of Systems Const: Reports: fever(s), chills and body aches Eyes: Denies: change in vision, blurry vision, blind spots, photophobia, floaters or seeing flashes ENMT: Reports: nasal congestion and sinus pain; Denies: throat pain, odynophagia, ear or mastoid pain or ear discharge Card: Reports: dyspnea on exertion; Denies: chest pain, palpitations, irregular heart rhythm, edema, swelling of feet/ankles, lightheadedness, syncope or pre-syncope Resp: Reports: dyspnea and non-productive cough; Denies: wheezing or hemoptysis GI: Denies: abdominal pain, nausea, vomiting or diarrhea : Denies: flank pain or dysuria Musc: Denies: neck pain, back pain, extremity pain or joint pain Skin/Breast: Denies: rash Neuro: Reports: headache(s); Denies: numbness in extremities, weakness in extremities, sensory changes or dizziness PFS ED PFSH: Medical History Asthma Borderline personality disorder Cocaine use disorder, severe, in sustained remission COVID Generalized anxiety disorder Major depressive disorder, recurrent, moderate Psychiatric care Social History Smoking and tobacco status: never smoked Alcohol intake: never Current gender identity: Female Female Reproductive History: Date of last menstrual period: 11/25/19 Physical Exam Const: COMMON NORMALS: patient oriented x3, no limitations and alert GENERAL APPEARANCE: cooperative and ill appearing NUTRITIONAL APPEARANCE: obese morbidly obese ORIENTATION/CONSCIOUSNESS: Yes awake, Yes oriented to person, Yes oriented to place and Yes oriented to time HENMT: COMMON NORMALS: normocephalic, atraumatic, hearing grossly normal bilaterally, external ears normal, EAC's normal, TM's normal bilaterally and Normal external nose present HEAD & SCALP: normal to inspection, normocephalic and atraumatic FACE & SINUS: sinus tenderness NOSE: Normal external nose present EXTERNAL EAR: Yes external ears normal and Yes no periauricular adenopathy EXTERNAL AUDITORY CANAL: EAC's normal TYMPANIC MEMBRANE: TM's normal bilaterally MOUTH: Normal oral and palatal mucosa present, lip normal and tongue normal THROAT: posterior oropharynx normal, tonsils normal and uvula midline Eye: COMMON NORMALS: Equal, round and reactive pupils present GENERAL EYE: appearance normal, both eyes and all related structures PUPIL: Yes Equal, round and reactive pupils present Neck/C-Spine: COMMON NORMALS: full ROM, no lymphadenopathy and no meningeal signs Chest: COMMONS NORMALS: normal inspection of the chest and normal palpation of entire chest wall Resp: EFFORT & INSPECTION: Yes able to speak in complete sentences, Yes tachypneic (at times; other times normal), No grunting, No stridor and No ret ractions AUSCULTATION: wheezes Cardio: COMMON NORMALS: regular rate and regular rhythm RATE: regular rate RHYTHM: regular rhythm GI: COMMON NORMALS: Normal to inspection, nondistended, normoactive bowel sounds present, Soft to palpation, non-tender, No hepatosplenomegaly present and no masses PALPATION: Yes Soft to palpation and Yes No hepatosplenomegaly present : COMMON NORMALS: Yes no CVA tenderness BLADDER/KIDNEY EXAM: Yes no CVA tenderness Back/Pelvis: COMMON NORMALS: no CVA tenderness Extremity: COMMON NORMALS: normal to inspection GENERAL: Yes normal exam except as noted Neuro: MARIBELL COMA SCALE: document GCS findings Maribell coma scale eye opening: Spontaneous [place] coma scale verbal response: Orientated Maribell coma scale motor response: Obey commands [place] coma scale total score: 15 COMMON NORMALS: patient oriented x3, moves all extremities, no focal motor deficits and no sensory deficits noted SENSORIUM/ORIENTATION: Yes alert, Yes oriented to person, Yes oriented to place and Yes oriented to time MENINGEAL SIGNS: Yes no meningeal signs Skin: COMMON NORMALS: no rashes or lesions noted GENERAL SKIN EXAM: no rashes or lesions noted Course Vital Signs: Vital signs: Vital Signs Temperature 100.2 F H 06/18/21 18:31 Pulse Rate 73 06/18/21 23:05 Respiratory Rate 20 H 06/18/21 23:05 Blood Pressure 132/56 06/18/21 23:05 Pulse Oximetry 93 06/18/21 23:05 MDM - URI/Sore Throat Medical Decision Making Patient is a 31-year-old female who presents to ED today with what sounds like viral illness. She clinically was mildly ill-appearing upon arrival but this did improve during her stay. I evaluated and re-evaluated patient on multiple occasions and patient was always satting on room air. There was a couple of instances where the nurse stated he had to place patient on oxygen due to low O2 however again every time I went into the room I was able to turn patient's oxygen off and she satted anywhere from 94 to 96% with perfect waveforms. Patient received 2 DuoNeb treatments and IV Solu-Medrol. My suspicion is patient has a viral upper respiratory infection exacerbated by her asthma diagnosis. Her influenza and COVID tests are negative. Labs including CBC, CMP, procalcitonin are normal. Her CXR does show possibly early right upper lobe pneumonia-again this is most likely viral however we will go ahead and cover her with antibiotics. Patient is stable for discharge at this time with s brittneyt return to ED precautions. She has albuterol inhaler she may continue to use. We will go ahead and place on steroids as well for asthma exacerbation. Later after dictating this note patient's PCR returned positive parainfluenza virus. Lab Data : 06/18/21 20:00 06/18/21 20:00 Radiology Impressions Chest X-Ray 06/18/21 18:30 IMPRESSION: Possible early right upper lobe pneumonia. Laboratory Results WBC 4.9 10^3/uL (4.0-10.0) 06/18/21 20:00 RBC 4.36 10^6/uL (4.1-5.3) 06/18/21 20:00 Hgb 12.1 g/dL (11.5-15.3) 06/18/21 20:00 Hct 37.5 % (37.0-47.0) 06/18/21 20:00 MCV 86.0 fl (81-99) 06/18/21 20:00 MCH 27.8 pg (28.0-34.0) L 06/18/21 20:00 MCHC 32.3 g/dL (30.0-36.0) 06/18/21 20:00 RDW 14.0 % (12.1-15.1) 06/18/21 20:00 Plt Count 218 10^3/cmm (130-400) 06/18/21 20:00 MPV 10.3 fL (7.4-10.4) 06/18/21 20:00 Neut % (Auto) 57.4 % 06/18/21 20:00 Lymph % (Auto) 26.3 % 06/18/21 20:00 Sequoyah % (Auto) 11.6 % 06/18/21 20:00 Eos % (Auto) 3.7 % 06/18/21 20:00 Baso % (Auto) 0.8 % 06/18/21 20:00 Neut # (Auto) 2.82 10^3/uL (1.8-7.7) 06/18/21 20:00 Lymph # (Auto) 1.3 10^3/uL (0.8-4.8) 06/18/21 20:00 Sequoyah # (Auto) 0.6 10^3/uL (0.2-0.9) 06/18/21 20:00 Eos # (Auto) 0.2 10^3/uL (0.0-0.8) 06/18/21 20:00 Baso # (Auto) 0.0 10^3/uL (0.0-0.1) 06/18/21 20:00 Nucleated RBC % (auto) 0 % 06/18/21 20:00 Nucleated RBCs # 0.0 /100WBC 06/18/21 20:00 Sodium 141 mmol/L (136-145) 06/18/21 20:00 Potassium 3.8 mmol/L (3.5-5.1) 06/18/21 20:00 Chloride 107 mmol/L (98-107) 06/18/21 20:00 Carbon Dioxide 20 mmol/L (22-29) L 06/18/21 20:00 Anion Gap 17.8 (5-19) 06/18/21 20:00 BUN 12 mg/dL (6-20) 06/18/21 20:00 Creatinine 0.6 mg/dL (0.5-0.9) 06/18/21 20:00 GFR Calculation 116.6 mL/min (90-130) 06/18/21:00 Glucose 92 mg/dL (65-115) 06/18/21 20:00 Calculated Osmolality 291 mOsm/kg (285-295) 06/18/21 20:00 Lactic Acid 1.3 mmol/L (0.5-2.2) 06/18/21 20:00 Calcium 9.2 mg/dL (8.5-10.5) 06/18/21 20:00 Total Bilirubin 0.3 mg/dL (0.15-1.2) 06/18/21 20:00 AST 21 U/L (0-32) 06/18/21 20:00 ALT 16 U/L (0-33) 06/18/21 20:00 Alkaline Phosphatase 87 IU/L (35-105) 06/18/21 20:00 Total Protein 7.6 g/dL (6.6-8.7) 06/18/21 20:00 Albumin 4.5 g/dL (3.5-5.2) 06/18/21 20:00 Globulin 3.1 g/dL (1.3-4.6) 06/18/21 20:00 Procalcitonin 0.14 ng/mL (0-0.5) 06/18/21 20:00 Coronavirus 229E (PCR) Not detected (NOT DETECT) 06/18/21 20:00 Influenza Type A Ag Negative (Negative) 06/18/21 20:00 Influenza Type B Ag Negative (Negative) 06/18/21 20:00 Parainfluenza 1 (PCR) Not detected (NOT DETECT) 06/18/21 22:32 Parainfluenza 2 (PCR) Not detected (NOT DETECT) 06/18/21 22:32 Parainfluenza 3 (PCR) Detected (NOT DETECT) A 06/18/21 22:32 Parainfluenza 4 (PCR) Not detected (NOT DETECT) 06/18/21 22:32 SARS-CoV-2 (PCR) Not detected (NOT DETECT) 06/18/21 20:00 Discharge Plan Discharge Patient Disposition: Home Clinical Impression: Asthma with exacerbation, Viral upper respiratory illness Right upper lobe pneumonia Qualifiers: Pneumonia type: due to unspecified organism Qualified Code(s): J18.9 - Pneumonia, unspecified organism Condition: Stable Prescriptions: New levofloxacin 750 mg tablet 750 mg PO DAILY 7 Days Qty: 7 0RF prednisone 10 mg tablet 10 mg PO DAILY 10 Days Qty: 32 0RF Rx Instructions: 6 tabs on days 1-2, 5 tabs on days 3-4, 4 tabs on day 5, 3 tabs on day 6, 2 tabs on day 7, 1 tab on day 8 No Action citalopram 40 mg tablet 40 mg PO DAILY 30 Days Qty: 30 3RF clindamycin HCl 300 mg capsule 300 mg PO TID 7 Days Qty: 21 0RF ibuprofen 800 mg tablet 800 mg PO Q8H PRN (Reason: pain) 10 Days Qty: 30 0RF montelukast 10 mg tablet 10 mg PO DAILY 0RF Symbicort 80-4.5 mcg/actuation Hfa Aerosol Inhaler See Rx Instructions .ROUTE .COMPLEX 0RF Rx Instructions: inhaled PT UNSURE OF DIRECTIONS, BUT HAS DIRECTIONS AT HOME. albuterol sulfate 90 mcg/actuation HFA aerosol inhaler 2 inh INHALATION Q4H PRN (Reason: shortness of breath or wheezing) Qty: 18 0RF Discharge Orders: Discharge ED (Routine); Ordered 06/18/21 Ordered By: Eleanor Zamorano Referrals: Fallon Burt MD [Primary Care Provider] - Coding Level of Care Code ED Cnc Mill Operator for Argelia Powers
[2021-06-18] MEDS: ipratropium-albuterol 3 mL Neb INHALATION ×2 (19:36→21:16)
[2021-06-18] MEDS: acetaminophen 500 mg Tablet 1000 MG PO (20:10)
[2021-06-18 20:13] LABS: Basophils % 0.8 %; Eosinophils # 0.2 10^3/uL (0.0-0.8); Eosinophils % 3.7 %; Hematocrit 37.5 % (37.0-47.0); Hemoglobin 12.1 g/dL (11.5-15.3); Lymphocytes # 1.3 10^3/uL (0.8-4.8); Lymphocytes % 26.3 %; Mean Corpuscular HGB Conc 32.3 g/dL (30.0-36.0); Mean Corpuscular Hemoglobin 27.8 pg (28.0-34.0); Mean Platelet Volume 10.3 fL (7.4-10.4); Monocytes # 0.6 10^3/uL (0.2-0.9); Monocytes % 11.6 %; Neutrophils # 2.82 10^3/uL (1.8-7.7); Neutrophils % 57.4 %; Nucleated Red Blood Cells % 0 %; Platelet Count 218 10^3/cmm (130-400); Red Blood Count 4.36 10^6/uL (4.1-5.3); White Blood Count 4.9 10^3/uL (4.0-10.0)
[2021-06-18 20:39] LABS: Alanine Aminotransferase 16 U/L (0-33); Albumin Level 4.5 g/dL (3.5-5.2); Alkaline Phosphatase 87 IU/L (35-105); Blood Urea Nitrogen 12 mg/dL (6-20); Calcium 9.2 mg/dL (8.5-10.5); Carbon Dioxide 20 mmol/L (22-29); Chloride 107 mmol/L (98-107); Globulin 3.1 g/dL (1.3-4.6); Glomerular Filtration Rate 116.6 mL/min (90-130); Glucose 92 mg/dL (65-115); Osmolality Calculated 291 mOsm/kg (285-295); Sodium 141 mmol/L (136-145); Total Bilirubin 0.3 mg/dL (0.15-1.2); Total Protein 7.6 g/dL (6.6-8.7)
[2021-06-18 20:41] LABS: Anion Gap 17.8 (5-19); Lactic Sepsis W/Reflex 1.3 mmol/L (0.5-2.2); Potassium 3.8 mmol/L (3.5-5.1)
[2021-06-18 20:42] LABS: Aspartate Amino Transferase 21 U/L (0-32)
[2021-06-18 20:44] LABS: Procalcitonin 0.14 ng/mL (0-0.5)
[2021-06-18 21:09] LABS: Influenza A by IFA Negative (Negative); Influenza B by IFA Negative (Negative)
--- NOTE | 2021-06-18 21:41 | PC.NURSE ---
1930 Pt is very confused attempting to get out of bed. Pt will not keep her blood pressure cuff or pulse ox on. Multiple attempts to redirect unsuccessfully.
[2021-06-18 22:31] LABS: Adenovirus Not Detected (NOT DETECT); Chlamydia Pneumoniae Not Detected (NOT DETECT); Coronavirus 229E,HKU1,NL63,OC4 Not Detected (NOT DETECT); Human Metapneumovirus Not Detected (NOT DETECT); Human Rhinovirus/Enterovirus Not Detected (NOT DETECT); Influenza A Not Detected (NOT DETECT); Influenza A H1 Not Detected (NOT DETECT); Influenza A H1-2009 Not Detected (NOT DETECT); Influenza A H3 Not Detected (NOT DETECT); Influenza B Not Detected (NOT DETECT); Mycoplasma Pneumoniae Not Detected (NOT DETECT); Parainfluenza Virus Type 1 Not Detected (NOT DETECT); Parainfluenza Virus Type 2 Not Detected (NOT DETECT); Parainfluenza Virus Type 3 Detected (NOT DETECT); Parainfluenza Virus Type 4 Not Detected (NOT DETECT); Respiratory Syncytial Virus A Not Detected (NOT DETECT); Respiratory Syncytial Virus B Not Detected (NOT DETECT); SARS-COV-2 Not Detected (NOT DETECT)
[2021-06-18 22:33] LABS: Parainfluenza Virus Type 1 Not Detected (NOT DETECT); Parainfluenza Virus Type 2 Not Detected (NOT DETECT); Parainfluenza Virus Type 3 Detected (NOT DETECT); Parainfluenza Virus Type 4 Not Detected (NOT DETECT); Results from Genmark
== END 2021-06-18 23:05 | disposition home or self-care (01) ==
PROVIDERS: Emergency Provider Physician Assistant; PCP Pediatrics
DX: J18.9 Pneumonia, unspecified organism (principal); J45.901 Unspecified asthma with (acute) exacerbation; J06.9 Acute upper respiratory infection, unspecified; Z20.822 Contact with and (suspected) exposure to COVID-19
CPT/HCPCS: 71045; 80053; 83605; 84145; 85025; 87631; 87635; 87804; 94640; 96374; 99284; J2930

== ENCOUNTER 2021-07-05 08:18 | Emergency (ER) | payer BC, MEDICAID, SELFPAY ==
[2021-07-05 08:25] VITALS: BP 128/84; PULSE 77; RESP 18; TEMP 36.2; O2SAT 98; BMI 45.4
[2021-07-05 08:33] VITALS: BP 127/74; PULSE 77; RESP 16; TEMP 36.3; O2SAT 94
--- NOTE | 2021-07-05 08:42 | W.ED.FALL ---
HPI - Fall General: Chief Complaint: Fall Stated Complaint: fell down stairs/elbow & side injury Time Seen by Provider: 07/05/21 08:33 Source: patient Mode of arrival: ambulatory Limitations: no limitations History of Present Illness: 31-year-old female presents to the ER today after falling down a flight of stairs. Patient reports this was approximately 15 steps. She was at the top and slipped while carrying her child. She tried to fall to protect her child and hit on her left side. Patient reports abrasions to her right hip in addition to right elbow pain. Patient has full range of motion of the right elbow however there is some pain with range of motion. Patient reports there is bruising already starting to appear on the right elbow. Patient denies that she hit her head. Denies any loss of consciousness. Patient denies any other pain at this time. Onset (ago): minute(s) Fall from: standing and down stairs (#) (15) Fall witnessed: yes, by family Place fall occurred: home Loss of consciousness: None Context: tripped/slipped Review of Systems General: Reports: 10 or more systems reviewed and unremarkable except in HPI and below PFSH ED PFSH: Medical History Asthma Borderline personality disorder Cocaine use disorder, severe, in sustained remission COVID Generalized anxiety disorder Major depressive disorder, recurrent, moderate Psychiatric care Social History Smoking and tobacco status: never smoked Alcohol intake: never Current gender identity: Female Female Reproductive History: Date of last menstrual period: 11/25/19 Physical Exam Const: COMMON NORMALS: no acute distress, patient oriented x3, no limitations, healthy appearing, alert and well nourished OTHER: unkempt HENMT: COMMON NORMALS: normocephalic and atraumatic HEAD & SCALP: normocephalic and atraumatic Neck/C-Spine: COMMON NORMALS: full ROM Chest: OTHER: non tender Resp: COMMON NORMALS: normal respiratory effort, No retractions, No use of accessory muscles and clear to auscultation bilaterally AUSCULTATION: clear to auscultation bilaterally Cardio: COMMON NORMALS: regular rate, regular rhythm and No murmurs present (Cardio) RATE: regular rate RHYTHM: regular rhythm GI: COMMON NORMALS: Normal to inspection, nondistended, normoactive bowel sounds present, Soft to palpation and non-tender PALPATION: Yes Soft to palpation OTHER: abrasions noted to R side : COMMON NORMALS: Yes no CVA tenderness BLADDER/KIDNEY EXAM: Yes no CVA tenderness Back/Pelvis: COMMON NORMALS: no CVA tenderness and thoracic and lumbar spine normal to inspection Extremity: COMMON NORMALS: normal to inspection and full ROM OTHER: Bruising noted to right elbow, full range of motion of the right elbow but mild tenderness to palpation over area of bruising. No swelling noted. Neuro: COMMON NORMALS: patient oriented x3 SENSORIUM/ORIENTATION: Yes alert Psych: COMMON NORMALS: mental status grossly normal, Normal thought process present, cooperative and normal affect THOUGHT PROCESS: Normal thought process present Skin: NARRATIVE SKIN EXAM: Abrasion noted to right hip. Course ED course: 31-year-old female presents to the ER after falling down 15 steps this morning while holding her child. Patient has pain on the right side where she slid. She has some abrasions and bruising to the right elbow however no other abnormals are noted. Patient complains of no other pain. She did not hit her head. I do not feel that imaging is necessary at this time. Vital Signs: Vital signs: Vital Signs Temperature 97.4 F L 07/05/21 08:33 Pulse Rate 77 07/05/21 08:33 Respiratory Rate 16 07/05/21 08:33 Blood Pressure 127/74 07/05/21 08:33 Pulse Oximetry 94 07/05/21 08:33 MDM - Fall Medical Decision Making 31-year-old female presents the ER today after falling down 15 steps just prior to arrival. Patient was holding her baby and tried to protect him by rolling to her side. Patient has abrasions noted to the right hip along with some bruising to the right elbow however full range of motion is noted with minimal tenderness. All other physical exam is normal. Discussed with patient she is likely to be very sore the next couple of days however that will improve. Recommend [id number] medications for symptomatic treatment such as ibuprofen and Tylenol. Apply ice to area of bruising. Follow-up with PCP in 5 to 7 days. Return to the ER with any new or worsening symptoms. Patient verbalized understanding and is in agreement with the treatment plan. Discharge Plan Discharge Patient Disposition: Home Clinical Impression: Fall down stairs, Contusion of elbow, right, Abrasion Condition: Stable Prescriptions: No Action citalopram 40 mg tablet 40 mg PO DAILY 30 Days Qty: 30 3RF clindamycin HCl 300 mg capsule 300 mg PO TID 7 Days Qty: 21 0RF ibuprofen 800 mg tablet 800 mg PO Q8H PRN (Reason: pain) 10 Days Qty: 30 0RF montelukast 10 mg tablet 10 mg PO DAILY 0RF Symbicort 80-4.5 mcg/actuation Hfa Aerosol Inhaler See Rx Instructions .ROUTE .COMPLEX 0RF Rx Instructions: inhaled PT UNSURE OF DIRECTIONS, BUT HAS DIRECTIONS AT HOME. albuterol sulfate 90 mcg/actuation HFA aerosol inhaler 2 inh INHALATION Q4H PRN (Reason: shortness of breath or wheezing) Qty: 18 0RF Discharge Orders: Discharge ED (Routine); Ordered 07/05/21 Ordered By: Lucila Sagastume Referrals: Fallon Burt MD [Primary Care Provider] - Discharge Diet: Usual diet Discharge Activity: Resume usual activity Patient Instructions: Opioid Safety Activity Restrictions/Additional Instructions: Take Tylenol alternate with Motrin for pain. Apply ice to areas of bruising. Follow-up with PCP in 5 to 7 days. Return to the ER with new or worsening symptoms. Coding Level of Care Code ED Talent Acquisition Relationship Manager for Argelia Powers
[2021-07-05 09:04] VITALS: BP 126/71; PULSE 77; RESP 16; TEMP 36.6; O2SAT 94
[2021-07-05 10:40] LABS: Amphetamines Screen Urine Negative (Negative); Barbiturates Screen Urine Negative (Negative); Benzodiazepines Screen Urine Negative (Negative); Cocaine Screen Urine Negative (Negative); Opiate Screen Urine Negative (Negative); PCP Screen Urine Negative (Negative); THC Screen Urine Positive (Negative)
== END 2021-07-05 10:51 | disposition home or self-care (01) ==
PROVIDERS: Emergency Provider Physician Assistant; PCP Pediatrics
DX: S50.01XA Contusion of right elbow, initial encounter (principal); S70.211A Abrasion, right hip, initial encounter; W10.9XXA Fall (on) (from) unspecified stairs and steps, initial encounter; Y92.018 Other place in single-family (private) house as the place of occurrence of the external cause; F14.21 Cocaine dependence, in remission
CPT/HCPCS: 80306; 99282

== ENCOUNTER 2021-07-09 14:40 | Outpatient (CLI) | payer BC, MEDICAID, SELFPAY ==
--- NOTE | 2021-07-09 14:56 | XRR_ITS ---
PROCEDURE INFORMATION: Exam: XR Right Shoulder Exam date and time: 07/09/2021 2:58 PM Age: 31 years old Clinical indication: Pain and injury or trauma; Fall; Blunt trauma (contusions or hematomas); Shoulder; Right; Injury date: 4 days ago; Additional info: Shoulder joint pain right TECHNIQUE: Imaging protocol: XR Right shoulder. Views: 2 or more views. COMPARISON: CR (CHEST, ) 06/18/2021 5:48 PM FINDINGS: Bones/joints: Normal. Soft tissues: Normal. XR/XR shoulder RT min 2V* [id number] IMPRESSION: No acute findings.
--- NOTE | 2021-07-09 15:04 | XRR_ITS ---
PROCEDURE INFORMATION: Exam: XR Left Ribs Exam date and time: 07/09/2021 3:09 PM Age: 31 years old Clinical indication: Pain and injury or trauma; Fall; Rib area, left side; Blunt trauma; Chest wall pain; Injury date: 4 days ago; Additional info: Rib pain, left sided TECHNIQUE: Imaging protocol: XR Left ribs. Views: 2 views. COMPARISON: CR (CHEST, ) 06/18/2021 5:48 PM FINDINGS: Bones/joints: Normal. Soft tissues: Normal. XR/XR ribs LT 2V* [id number] IMPRESSION: No acute findings.
== END 2021-07-09 14:41 | disposition home or self-care (01) ==
LOC: RAD 14:48
PROVIDERS: PCP Pediatrics; Visit Provider Nurse Practitioner Family
DX: R07.81 Pleurodynia (principal); M25.511 Pain in right shoulder
CPT/HCPCS: 71100; 73030

== ENCOUNTER 2024-11-16 18:24 | Outpatient (CLI) | payer BC, MEDICAID, SELFPAY ==
[2024-11-16] VITALS (27 sets, daily range): BP systolic 104–171; BP diastolic 53–81; PULSE 71–92; BMI 49.9
[2024-11-16 18:56] LABS: Glucose Urine UA Negative (Normal); Nitrate Urine Positive (Negative)
[2024-11-16 19:04] LABS: PCP Screen Urine Negative (Negative)
[2024-11-16 19:39] LABS: Specific Gravity, Urine 1.041 (1.005-1.030)
[2024-11-16 19:40] LABS: UA Manual Slide Review YES; UA Slide Review UA Slide Review Perf
[2024-11-16 19:44] LABS: Universal Test for UA Present (0)
[2024-11-16] MEDS: cefTRIAXone 1,000 MG, lidocaine 1% 2.1 ML in SYRINGE 1 EACH 2.1 MG IM (21:20)
[2024-11-16 21:53] LABS: Hematocrit 34.8 % (36-47); Hemoglobin 11.90 g/dL (11.27-16.99); Mean Corpuscular HGB Conc 34.2 g/dL (30-55); Mean Corpuscular Hemoglobin 31.0 pg (27-33); Mean Corpuscular Volume 90.6 fl (85-98); Nucleated Red Blood Cells % 0 %; Platelet Count 283 10^3/cmm (157-399); Red Blood Count 3.84 10^6/uL (3.85-5.65); White Blood Count 9.95 10^3/uL (3.29-11.43)
[2024-11-16] MEDS: NIFEdipine ER (24 hr) 30 mg Tablet PO (21:59)
[2024-11-16 22:31] LABS: Alanine Aminotransferase 13 U/L (0-33); Albumin Level 3.6 g/dL (3.5-5.2); Alkaline Phosphatase 121 U/L (35-105); Anion Gap 17.6 (5-19); Aspartate Amino Transferase 16 U/L (0-32); Blood Urea Nitrogen 8 mg/dL (6-20); Calcium 8.8 mg/dL (8.5-10.5); Carbon Dioxide 19 mmol/L (22-29); Chloride 104 mmol/L (98-107); Creatinine Clr Calc Pharmacy 237.3594; Globulin 2.9 g/dL (1.3-4.6); Glucose 85 mg/dL (65-115); Osmolality Calculated 282 mOsm/kg (285-295); Potassium 3.6 mmol/L (3.5-5.1); Sodium 137 mmol/L (136-145); Total Protein 6.5 g/dL (6.6-8.7)
== END 2024-11-16 23:15 | disposition home or self-care (01) ==
LOC: OPOB 18:28 → OBGYN 18:28
PROVIDERS: PCP Pediatrics; Visit Provider Family Medicine
DX: O26.899 Other specified pregnancy related conditions, unspecified trimester (principal); Z3A.00 Weeks of gestation of pregnancy not specified; R10.9 Unspecified abdominal pain
CPT/HCPCS: 59025; 80053; 80306; 81001; 85025; 96372; 99211; J0696; J7120; J9999

== ENCOUNTER 2024-11-20 15:12 | Outpatient (CLI) | payer MEDICAID, SELFPAY ==
[2024-11-20 15:12] VITALS: BMI 51.0
[2024-11-20 15:30] VITALS: BP 143/68; PULSE 81
[2024-11-20 15:45] VITALS: BP 142/74; PULSE 82
[2024-11-20 16:01] VITALS: BP 138/69; PULSE 81
[2024-11-20 16:15] VITALS: BP 138/59; PULSE 75
[2024-11-20 16:30] VITALS: BP 149/67; PULSE 87
[2024-11-20 17:19] VITALS: BP 149/67; PULSE 87; O2SAT 98
== END 2024-11-20 17:19 | disposition home or self-care (01) ==
LOC: OPOB 15:16 → OBGYN 15:17
PROVIDERS: Visit Provider Family Medicine
DX: O26.899 Other specified pregnancy related conditions, unspecified trimester (principal); Z3A.00 Weeks of gestation of pregnancy not specified; R10.9 Unspecified abdominal pain
CPT/HCPCS: 59025; 99211

== ENCOUNTER 2024-11-24 22:26 | Outpatient (CLI) | payer MEDICAID, SELFPAY ==
[2024-11-24] VITALS (8 sets, daily range): BP systolic 131–180; BP diastolic 73–96; PULSE 66–76; BMI 52.1
[2024-11-25 00:02] VITALS: BP 136/80; PULSE 67
[2024-11-25 00:03] VITALS: BP 133/80; PULSE 74
[2024-11-25 00:13] VITALS: BP 122/75; PULSE 82
[2024-11-25 00:24] VITALS: BP 132/79; PULSE 82
[2024-11-25 00:34] VITALS: BP 134/75; PULSE 76
[2024-11-25 01:13] VITALS: BP 132/79; PULSE 82; RESP 16; TEMP 36.4; O2SAT 98
== END 2024-11-25 00:53 | disposition home or self-care (01) ==
LOC: OPOB 22:27 → OBGYN 22:27
PROVIDERS: Visit Provider Obstetrics & Gynecology
DX: O26.899 Other specified pregnancy related conditions, unspecified trimester (principal); Z3A.00 Weeks of gestation of pregnancy not specified; R10.9 Unspecified abdominal pain
CPT/HCPCS: 59025; 99211

== ENCOUNTER 2024-11-25 14:55 | Outpatient (CLI) | payer MEDICAID, SELFPAY ==
[2024-11-25 15:19] VITALS: RESP 16; TEMP 36.8; BMI 52.6
[2024-11-25 15:21] VITALS: BP 145/76; PULSE 75
[2024-11-25 15:41] VITALS: BP 177/91; PULSE 89
[2024-11-25 15:44] VITALS: BP 169/98
[2024-11-25 16:01] VITALS: BP 144/78; PULSE 75
== END 2024-11-25 16:18 | disposition home or self-care (01) ==
LOC: OPOB 15:02 → OBGYN 15:03
PROVIDERS: Visit Provider Obstetrics & Gynecology
DX: O26.899 Other specified pregnancy related conditions, unspecified trimester (principal); Z3A.00 Weeks of gestation of pregnancy not specified; N89.8 Other specified noninflammatory disorders of vagina
CPT/HCPCS: 59025; 84112; 99211

== ENCOUNTER 2024-11-27 15:49 | Outpatient (CLI) | payer MEDICAID, SELFPAY ==
[2024-11-27 18:17] LABS: Total Volume, Urine 1700 mL
== END 2024-11-27 15:50 | disposition home or self-care (01) ==
LOC: LAB 15:52
PROVIDERS: Visit Provider Obstetrics & Gynecology
DX: O14.90 Unspecified pre-eclampsia, unspecified trimester (principal)
CPT/HCPCS: 84156

== ENCOUNTER 2024-11-29 17:22 | Outpatient (CLI) | payer MEDICAID, SELFPAY ==
[2024-11-29 17:51] VITALS: BP 132/68; PULSE 79
== END 2024-11-29 18:05 | disposition home or self-care (01) ==
LOC: OPOB 17:22 → OBGYN 17:33
PROVIDERS: Visit Provider Obstetrics & Gynecology
DX: O13.9 Gestational [pregnancy-induced] hypertension without significant proteinuria, unspecified trimester (principal); Z3A.00 Weeks of gestation of pregnancy not specified
CPT/HCPCS: 59025; 84315; 87081

== ENCOUNTER 2024-12-03 16:45 | Outpatient (CLI) | payer MEDICAID, SELFPAY ==
[2024-11-29 17:33] VITALS: BP 132/68; PULSE 79; RESP 18
[2024-12-03] VITALS (12 sets, daily range): BP systolic 132–181; BP diastolic 62–103; PULSE 76–99; RESP 18; TEMP 36.7; BMI 50.7
--- NOTE | 2024-12-03 17:41 | USR_ITS ---
PROCEDURE INFORMATION: Exam: US Biophysical Profile Without Non-Stress Test Exam date and time: 12/03/2024 5:56 PM Age: 34 years old Clinical indication: Pain indication: Abdominal pain; ; Prior surgery; Surgery date: 6+ months; Surgery type: C section-2x; Additional info: well being TECHNIQUE: Imaging protocol: US biophysical profile without non-stress testing. Total images: 4 COMPARISON: CT abdomen pelvis w con* [id number] 05/02/2021 9:52 PM FINDINGS: Gestation: Single live intrauterine gestation cephalic presentation. heart rate: 147 bpm. Regular cardiac rhythm, rate 147 bpm. Placenta: Placenta anterior fundal. Placenta anterior measuring up to 15 cm thickness. Amniotic fluid index: KOFFI is 12.18 cm. BIOPHYSICAL PROFILE: breathing (BPP): 2 out of 2. gross body movement (BPP): 2 out of 2. tone (BPP): Normal tone and gross body motion. Amniotic fluid (BPP): Normal amniotic fluid volume, KOFFI 12.2 cm. Cervix is completely obscured by echogenicity associated with 3rd trimester calvarium. Other findings: Normal respiratory motion. US/US OB BPP wo NST [id number] IMPRESSION: Biophysical profile score is 8 out of 8.
[2024-12-03 17:55] LABS: Hematocrit 35.3 % (36-47); Hemoglobin 11.70 g/dL (11.27-16.99); Mean Corpuscular HGB Conc 33.1 g/dL (30-55); Mean Corpuscular Hemoglobin 30.5 pg (27-33); Mean Corpuscular Volume 92.2 fl (85-98); Nucleated Red Blood Cells % 0.3 %; Platelet Count 252 10^3/cmm (157-399); Red Blood Count 3.83 10^6/uL (3.85-5.65); White Blood Count 9.50 10^3/uL (3.29-11.43)
[2024-12-03 17:58] LABS: Glucose Urine UA Negative (Normal); Nitrate Urine Negative (Negative)
[2024-12-03 18:00] LABS: Add Urine Microscopic? YES
--- NOTE | 2024-12-03 18:16 | PC.NURSE ---
diamond powder technician reports 11/09 BPP, 12.1 KOFFI, unable to measure cervical length
[2024-12-03 18:17] LABS: Specific Gravity, Urine 1.034 (1.005-1.030); UA Slide Review UA Slide Review Perf
[2024-12-03 18:21] LABS: Alanine Aminotransferase 23 U/L (0-33); Albumin Level 3.8 g/dL (3.5-5.2); Alkaline Phosphatase 163 U/L (35-105); Anion Gap 16.5 (5-19); Aspartate Amino Transferase 19 U/L (0-32); Carbon Dioxide 21 mmol/L (22-29); Chloride 104 mmol/L (98-107); Globulin 3.0 g/dL (1.3-4.6); Glucose 118 mg/dL (65-115); Potassium 3.5 mmol/L (3.5-5.1); Sodium 138 mmol/L (136-145); Total Protein 6.8 g/dL (6.6-8.7); Uric Acid 4.7 mg/dL (2.4-5.7)
[2024-12-03 18:25] LABS: UPRO/UCREAT Ratio 0.28 mg/mg CR
[2024-12-03 19:00] LABS: Blood Urea Nitrogen 11 mg/dL (6-20); Calcium 9.6 mg/dL (8.5-10.5); Creatinine Clr Calc Pharmacy 199.6916; Osmolality Calculated 286 mOsm/kg (285-295)
--- NOTE | 2024-12-03 19:15 | PC.NURSE ---
this nurse called labetalol 200mg BID PO for 7 days, Macrobid 100mg BID for 7 days for to Sohail Harvey
[2024-12-03] MEDS: nitrofurantoin SR (BID) 100 mg Capsule PO (20:16)
--- NOTE | 2024-12-03 21:02 | P.TNLD_ITS ---
OB L&D Triage Visit Information: Date of evaluation: 12/03/24 Reason for evaluation: other (NST scheduled today) Comments/Additional reason(s) for visit: Scheduled NST Evaluation: Variability: Moderate (11-25) monitor accelerations: Present 15x15 monitor decelerations: None Laboratory results: Laboratory Tests 12/03/24 17:40 WBC 9.50 RBC 3.83 L Hgb 11.70 Hct 35.3 L MCV 92.2 MCH 30.5 MCHC 33.1 RDW 13.5 Plt Count 252 MPV 10.4 Neut % (Auto) 76.6 Lymph % (Auto) 14.2 Blanco % (Auto) 6.9 Eos % (Auto) 1.1 Baso % (Auto) 0.3 Neut # (Auto) 7.27 Lymph # (Auto) 1.4 Blanco # (Auto) 0.7 Eos # (Auto) 0.1 Baso # (Auto) 0.0 Nucleated RBC % (a uto) 0.3 Nucleated RBCs # 0.0 Sodium 138 Potassium 3.5 Chloride 104 Carbon Dioxide 21 L Anion Gap 16.5 BUN 11 Creatinine 0.6 GFR Calculation 114.4 Glucose 118 H Calculated Osmolal ity 286 Uric Acid 4.7 Calcium 9.6 Total Bilirubin 0.3 AST 19 ALT 23 Alkaline Phosphata se 163 H Lactate Dehydrogen ase 278 H Total Protein 6.8 Albumin 3.8 Globulin 3.0 Urine Color Dark yellow A Urine Appearance Cloudy A Urine pH 5.5 Ur Specific Gravit y 1.034 H Urine Protein 1+ A Urine Glucose (UA) Negative Urine Ketones Trace Urine Blood 3+ A Urine Nitrate Negative Urine Bilirubin 1+ H Urine Urobilinogen 1.0 Ur Leukocyte Zeenat ase Negative Urine RBC 11-20 H Urine WBC 11-20 H Ur Squamous Epith Cells 51-100 Calcium Oxalate Cr ystal 5-10 H Amorphous Sediment Not Reportable Urine Bacteria 3+ H Hyaline Casts 0.81 U Random Total Pro tein 70 Urine Creatinine 250 H Protein/Creatinin Ratio 0.28 Vital signs: Vital Signs - 24 hr 12/03/24 16:55 12/03/24 16:58 12/03/24 17:05 Temperature Pulse Rate 99 Blood Pressure 147/82 Oxygen Delivery Me thod Room Air Room Air 12/03/24 17:14 12/03/24 17:14 12/03/24 17:28 Temperature Pulse Rate 87 84 Blood Pressure 181/103 168/79 Oxygen Delivery Me thod Room Air 12/03/24 17:30 12/03/24 17:35 12/03/24 18:04 Temperature Pulse Rate 86 79 Blood Pressure 155/69 143/81 Oxygen Delivery Me thod Room Air 12/03/24 18:18 12/03/24 18:19 12/03/24 18:35 Temperature Pulse Rate 87 90 Blood Pressure 141/79 155/80 Oxygen Delivery Me thod Room Air 12/03/24 18:49 12/03/24 19:04 12/03/24 19:19 Temperature Pulse Rate 90 88 86 Blood Pressure 142/68 138/62 150/81 Oxygen Delivery Me thod 12/03/24 20:33 12/03/24 20:46 Temperature 98.1 F Pulse Rate 76 Blood Pressure 132/63 Oxygen Delivery Me thod Care JONY Calculator Estimated Delivery Date Method Current WG Current Estimate 12/21/24 Manual 37w 3d Comments: Late to care, EDC 12/21/2024. Prior care at another facility was discontinued due to poor compliance. Expected Delivery Route/Plan Repeat CS 12/07/2024 Specific Issues/Plans Marijuana use Additional Care Information: 2 previous sections done in [place] in 2010 2012. Final Diagnosis Final Diagnosis 1. 37 weeks gestation of : Status: Acute Code(s): Z3A.37 - 37 weeks gestation of 2. Hx of section complicating : Status: Acute Code(s): O34.219 - Maternal care for unspecified type scar from previous delivery 3. Poor patient attendance of care: Status: Acute Code(s): O09.30 - Supervision of with insufficient care, unspecified trimester 4. Poor hygiene: Status: Acute Code(s): R46.0 - Very low level of personal hygiene 5. BMI 50.0-59.9, adult: Status: Acute Code(s): Z68.43 - Body mass index [BMI] 50.0-59.9, adult 6. Economic problem affecting care: Status: Acute Code(s): Z59.9 - Problem related to housing and economic circumstances, unspecified Other Information/Follow up Preeclampsia labs negative. Normal blood pressures after labetalol prescription sent for 2 mg twice daily until delivery. Asymptomatic bacteriuria initial dose of antibiotics given with prescription for 7-day sent. NST reactive with no decelerations. Normal baseline heart rate. Biophysical profile 8 out of 8 with normal amniotic fluid index. Not diane and denies concerning symptoms. GBS negative. Patient sent home with instructions repeat delivery planned. Coding Level of Care Code Acute Code for Chg Fwd Diagnoses 37 weeks gestation of Z3A.37 Hx of section complicating O34.219 Poor patient attendance of care O09.30 Poor hygiene R46.0 BMI 50.0-59.9, adult Z68.43 Economic problem affecting care Z59.9
== END 2024-12-03 21:00 | disposition home or self-care (01) ==
LOC: OPOB 16:46 → OBGYN 16:50
PROVIDERS: Obstetrics & Gynecology; Visit Provider Obstetrics & Gynecology
DX: O13.9 Gestational [pregnancy-induced] hypertension without significant proteinuria, unspecified trimester (principal); Z3A.00 Weeks of gestation of pregnancy not specified
CPT/HCPCS: 12345; 36415; 59025; 76819; 80053; 81001; 82570; 83615; 84156; 84550; 85025; 99211; J9999

== ENCOUNTER 2024-12-05 03:34 | Inpatient (IN) | payer MEDICAID, SELFPAY ==
[2024-12-05] VITALS (78 sets, daily range): BP systolic 112–181; BP diastolic 59–92; PULSE 60–90; RESP 16–18; TEMP 28.3–37; O2SAT 89–100; BMI 50.4
[2024-12-05 04:19] LABS: Hematocrit 33.5 % (36-47); Hemoglobin 11.10 g/dL (11.27-16.99); Mean Corpuscular HGB Conc 33.1 g/dL (30-55); Mean Corpuscular Hemoglobin 30.3 pg (27-33); Mean Corpuscular Volume 91.5 fl (85-98); Nucleated Red Blood Cells % 0.3 %; Platelet Count 250 10^3/cmm (157-399); Red Blood Count 3.66 10^6/uL (3.85-5.65); White Blood Count 11.01 10^3/uL (3.29-11.43)
--- NOTE | 2024-12-05 04:50 | PM.OBGYHP ---
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 History of Present Illness Kristin Mcclellan is a 34 year old female EDC December 21, 2024 At 37 w 5 d Inconsistent care Presents to L&D c/o fluid leakage + movements h/o c-sections x two Present Details : 3 Para: 2 Labs Rubella: Immune RPR: Negative GBS: Negative Medications/Allergies Home Medications ?Medication ?Instructions ?Recorded ?Confirmed ?Last Taken ?Type budesonide-formoterol HFA 80 See Rx Instructions .Route .COMPLEX 11/25/19 11/29/24 Unknown History mcg-4.5 mcg/actuation aerosol inhaler (Symbicort) montelukast 10 mg tablet 10 mg PO DAILY 11/25/19 11/29/24 11/25/19 History albuterol sulfate 90 mcg/actuation 2 inh inhalation Q4H PRN shortness 04/11/21 11/29/24 Unknown Rx aerosol inhaler of breath or wheezing #18 grams duloxetine 30 mg capsule,delayed 90 mg PO DAILY 11/29/24 11/29/24 Unknown History release Allergies Allergy/AdvReac Type Severity Reaction Status Date / Time cephalexin (From Keflex) Allergy Severe ALGY-Swell Verified 11/29/24 16:06 Lip/Tongue/Throat Penicillins Allergy Severe ALGY-Swell Verified 11/29/24 16:06 Lip/Tongue/Throat lactase (From Dairy Aid) Allergy lactose Verified 11/29/24 16:06 intolerant 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: Medical History (Updated 11/29/24 @ 17:25 by Eitan Bliss MD) Poor patient attendance of care Dental abscess COVID Asthma Cocaine use disorder, severe, in sustained remission Major depressive disorder, recurrent, moderate Generalized anxiety disorder Borderline personality disorder Family History (Updated 11/29/24 @ 16:24 by Deedee Canela RN) Mother Hyperlipidemia Thyroid disease Grandmother Heart disease Hyperlipidemia Hypertension Social History Smoking and tobacco/nicotine status: never used tobacco/nicotine Alcohol intake: never Substance/Drug Use: never Current gender identity: Female Care JONY Calculator Estimated Delivery Date Method Current WG Current Estimate 12/21/24 Manual 37w 6d Expected Delivery Route/Plan Repeat CS 12/07/2024 Specific Issues/Plans Marijuana use Vitals/I&O/Wt Last Vital Signs Temp 82.9 F L 12/05/24 19:16 Pulse 69 12/05/24 22:15 Resp 18 12/05/24 20:25 BP 120/62 12/05/24 22:15 Pulse Ox 99 12/05/24 20:25 O2 Del Method Room Air 12/05/24 20:25 12/05/24 12/05/24 12/06/24 14:59 22:59 06:59 Intake Total 1841.667 / 1841.667 Output Total 550 / 550 Balance 1291.667 / 1291.667 Weight last 48 hrs Weight 322 lb Physical Exam Narrative: Weight 335 lbs; 5?7? VS normal General awake, alert Lungs: clear Cor: RRR Abd: nontender Vulva/Vagina + blood-tinged amniotic fluid Cervix: closed External monitor: heart tracing good variability, + accelerations Urinary Catheter Management: Fuentes: Cath Placed During This Visit: yes, but has since been removed by the nurse Reason for Continuing Indwelling Catheter: Decision to DC Catheter Urinary Catheter Date of Insertion: 12/05/24 Urinary Catheter Time of Insertion: 08:37 Date Urinary Catheter Removed: 12/05/24 Time Urinary Catheter Discontinued: 16:30 Data 12/05/24 22:36 Results Labs OB ([facility]): Obstetrics US/Biophysical Profile 12/03/24 Blood Type A Negative 12/05/24 Antibody Screen Negative 12/05/24 Hct, (36-47) 28.9 % L 12/05/24 Hgb, (11.27-16.99) 9.70 g/dL L 12/05/24 Rho(D) Type Rh negative 12/05/24 Plt Count, (157-399) 218 10^3/cmm 12/05/24 Uric Acid, (2.4-5.7) 4.7 mg/dL 12/03/24 Urine Opiates Screen, (Negative) Negative ng/mL 12/05/24 Ur Barbiturates Screen, (Negative) Negative ng/mL 12/05/24 Ur Phencyclidine Scrn, (Negative) Negative ng/mL 12/05/24 Ur Amphetamines Screen, (Negative) Negative ng/mL 12/05/24 U Benzodiazepines Scrn, (Negative) Negative ng/mL 12/05/24 Urine Cocaine Screen, (Negative) Negative ng/mL 12/05/24 U Marijuana (THC) Screen, (Negative) Positive ng/mL H 12/05/24 A&P Assessment and plan 1. 37 weeks gestation of : 37 w 5 d Spontaneous rupture of membranes h/o c-sections x two desires permanent sterilization poor care plan repeat , bilateral salpingectomy procedures and risks explained to patient Risks include, but not limited to, infection; bleeding; injury to internal organs; anesthesia; Blood transfusions Patient understands and wants to proceed Patient wants permanent sterilization She had signed Medicaid sterilization consent more than 30 days prior to delivery Patient does not want reversible control Patient adamant re permanent sterilization Understands irreversibility of procedure PDMP PDMP Reviewed: Not Reviewed Attestations Medical Necessity Statement*: patient at 37 w 5 d, previous c-sections x two, presented with spontaneous rupture of membranes Coding Level of Care Code Acute Code for Chg Fwd Diagnoses 37 weeks gestation of Z3A.37
[2024-12-05 05:42] LABS: PCP Screen Urine Negative (Negative)
[2024-12-05] MEDS: citric acid-sodium citrate 30 mL UDC PO (07:58)
[2024-12-05] MEDS: metoclopramide 5 mg/mL SDV 2 mL 10 MG IVP (07:58)
--- NOTE | 2024-12-05 08:00 | ANES.PREANE2 ---
Pre-Anesthetic Assessment Height/Weight: Height 1.7 m Weight 146.057 kg Pulse BP O2 Del Method 80 117/61 Room Air 12/05/24 07:46 12/05/24 07:46 12/05/24 03:00 Preop Diagnosis: previous c/s c/s Familial anesthetic complications: none Was Beta Jammie taken within 24 hours: N/A Was Clonidine taken within 24 hours: N/A Social No alcohol and No tobacco Exam alert, oriented x 3 and clear to auscultation bilaterally Airway Mallampati: Class II Dentition: false History/ROS No significant history except as noted Pulmonary Asthma (does not use inhaler) CV/HEM None reported None reported Hepatic None reported GI None reported Metabolic Morbid Obesity Musc/skel None reported Neuropsych Anxiety Anesthetic Plan ASA status: 3 Anesthesia: Anesthesia Evaluation and Regional (specify below) Risk of > 500 ml blood loss (7ml/kg in children): Yes, adequate IV access and fluids planned Medications/Allergies Home Medications ?Medication ?Instructions ?Recorded ?Confirmed ?Last Taken ?Type budesonide-formoterol HFA 80 See Rx Instructions .Route .COMPLEX 11/25/19 11/29/24 Unknown History mcg-4.5 mcg/actuation aerosol inhaler (Symbicort) montelukast 10 mg tablet 10 mg PO DAILY 11/25/19 11/29/24 11/25/19 History albuterol sulfate 90 mcg/actuation 2 inh inhalation Q4H PRN shortness 04/11/21 11/29/24 Unknown Rx aerosol inhaler of breath or wheezing #18 grams duloxetine 30 mg capsule,delayed 90 mg PO DAILY 11/29/24 11/29/24 Unknown History release Allergies Allergy/AdvReac Type Severity Reaction Status Date / Time cephalexin (From Keflex) Allergy Severe ALGY-Swell Verified 11/29/24 16:06 Lip/Tongue/Throat Penicillins Allergy Severe ALGY-Swell Verified 11/29/24 16:06 Lip/Tongue/Throat lactase (From Dairy Aid) Allergy lactose Verified 11/29/24 16:06 intolerant Current Medications Generic Name Dose Route Start Last Admin Trade Name Freq PRN Reason Stop Dose Admin Dextrose/Lactated Ringer's 1,000 mls @ 125 mls/hr 12/05/24 03:45 12/05/24 06:00 Dextrose 5%-Lactated Ringers IV 125 mls/hr .Q8H NOÉ Administration PFSH Anesthesia Medical History (Updated 11/29/24 @ 17:25 by Eitan Bliss MD) Poor patient attendance of care Dental abscess COVID Asthma Cocaine use disorder, severe, in sustained remission Major depressive disorder, recurrent, moderate Generalized anxiety disorder Borderline personality disorder Family History (Updated 11/29/24 @ 16:24 by Deedee Canela RN) Mother Hyperlipidemia Thyroid disease Grandmother Heart disease Hyperlipidemia Hypertension Social History Smoking and tobacco/nicotine status: never used tobacco/nicotine Alcohol intake: never Substance/Drug Use: never Current gender identity: Female Female Reproductive History : 3 Data Anesthesia 12/05/24 04:00 Short CBC 12/05/24 Range/Units 04:00 WBC 11.01 (3.29-11.43) 10^3/uL Hgb 11.10 L (11.27-16.99) g/dL Hct 33.5 L (36-47) % MCV 91.5 (85-98) fl Plt Count 250 (157-399) 10^3/cmm Neut % (Auto) 79.7 % Neut # (Auto) 8.78 H (1.8-7.7) 10^3/uL Blood Bank 12/05/24 04:00 Blood Type A Negative Rho(D) Type Rh negative Antibody Screen Negative
[2024-12-05] MEDS: SODIUM CHLORIDE 0.9% IV (08:15)
[2024-12-05] MEDS: GENTAMICIN IV (08:15)
--- NOTE | 2024-12-05 10:22 | PM.OP2 ---
Brief Operative Note Date of procedure: 12/05/24 Pre-op diagnosis: term , previous c-sections x two, spontaneous rupture of membranes Post-op diagnosis: same Procedure Done: repeat low-transverse bilateral partial salpingectomy Surgeon: Rajan Ortiz Complications: none Post-op Plan: floor Condition: stable Disposition: floor
--- NOTE | 2024-12-05 10:55 | PM.OP ---
Operative Report Date of procedure: December 05, 2024 Pre-op diagnosis: 37 w 5 d gestation Previous x two Spontaneous rupture of membranes For repeat Desired permanent sterilization Post-op diagnosis: same Post-op findings: Vigorous Normal placenta and cord Normal uterus, tubes, and ovaries Blood-tinged amniotic fluid, c/w partial placenta abruption Procedure done: Repeat low-transverse Bilateral partial salpingectomy Specimens removed/disposition: placenta and cord, discarded cord gases bilateral fallopian tubes, sent to pathology Surgeon: Rajan Ortiz MD Anesthesia: Spinal Estimated blood loss (mL): 500 Complications: none Findings: see above Condition: stable Disposition: floor Brief History: Patient with previous c-sections x two, presented with spontaneous rupture of membranes. In addition, she wanted permanent sterilization. She understands irreversibility of the procedure and refused reversible types of control. Medicaid consent for bilateral tubal ligation signed more than 30 days prior to delivery. Procedure: Patient was taken to the operating room, placed supine in the left lateral tilt position. Spinal anesthesia and a Fuentes catheter were already placed. The abdomen was prepped and draped in the usual sterile fashion. A Pfannenstiel incision was made over an old scar and carried down through skin and subcutaneous tissue and fascia. The fascial incision was extended laterally with Segundo scissors. The fascia was from the underlying rectus muscles. The rectus muscles were split in the midline. The peritoneum was entered bluntly avoiding underlying organs. A bladder flap was created. A low transverse uterine incision was made and extended laterally bluntly avoiding the uterine vessels. Blood-tinged amniotic fluid was seen. The baby was delivered in cephalic presentation atraumatically. The baby was suctioned. The cord was clamped and cut and the baby was handed to an awaiting hydro generation supervisor. Cord gases and blood were obtained. The placenta was manually removed intact. The uterine cavity was bluntly curetted with wet laps. The uterine incision was then closed with a continuous interlocking stitich of O chromic. Adequate hemostasis was seen. No bleeding was seen. Attention was then turned to the bilateral tubal ligation. The left fallopian tube was identified to its fimbrial end. The mesosalpinx was cauterized and cut using a Ligasure device. The fallopian tube was removed. The right fallopian tube was similarly identified to its fimbrial end. The mesosalpinx was cauterized and cut using a Ligasure device. The right fallopian tube was removed. No bleeding was seen. The uterine incision was again inspected and found to have good hemostasis. Inspection of the tubal ligation sites and the uterine incision showed adequate hemostasis. The fascia was then closed with a continuous stitch of O-Vicryl. Additional interrupted stitches of O-Vicryl were used for fascial closure. The subcutaneous tissue was irrigated and inspected for hemostasis. The skin was then reapproximated using Insorb renuka. Postoperative condition stable Disposition to recovery room Estimated blood loss 500 cc, no replacement Sponge, needle, and instrument counts were correct x two There were no complications
--- NOTE | 2024-12-05 18:52 | PC.NURSE ---
Call made due to mother not having custody of other two children.
[2024-12-05 22:49] LABS: Hematocrit 28.9 % (36-47); Hemoglobin 9.70 g/dL (11.27-16.99); Mean Corpuscular HGB Conc 33.6 g/dL (30-55); Mean Corpuscular Hemoglobin 31.2 pg (27-33); Mean Corpuscular Volume 92.9 fl (85-98); Platelet Count 218 10^3/cmm (157-399); Red Blood Count 3.11 10^6/uL (3.85-5.65); White Blood Count 9.50 10^3/uL (3.29-11.43)
[2024-12-06 04:00] VITALS: TEMP 36.7
[2024-12-06 04:29] VITALS: BP 125/71; PULSE 86
[2024-12-06 08:28] VITALS: PULSE 86; RESP 18; O2SAT 98
[2024-12-06 09:15] VITALS: RESP 16; TEMP 36.8
[2024-12-06] MEDS: ferrous sulfate EC 325 mg Tablet PO (09:15)
[2024-12-06] MEDS: PRENATAL VIT NO.130/IRON/FOLIC 1 EACH TABLET PO (09:15)
[2024-12-06 09:17] VITALS: BP 143/78; PULSE 90
[2024-12-06] MEDS: alum-mag-hydroxide-sime 30 mL UDC PO (11:19)
[2024-12-06 12:00] VITALS: BP 143/78; PULSE 90; RESP 16; TEMP 36.8; O2SAT 97
--- NOTE | 2024-12-06 15:10 | P.PN_ITS ---
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 Subjective: Interval history: no c/o eating, voiding, ambulating well no pain, bleeding wants to be discharged baby was transferred to [place] Labor: Amniotic Membrane Status: Ruptured Monitor Mode: Palpation C ontraction Pattern: Regular Vitals/I&O/Wt Last Vital Signs Temp 98.3 F 12/06/24 12:00 Pulse 90 12/06/24 12:00 Resp 16 12/06/24 12:00 BP 143/78 12/06/24 12:00 Pulse Ox 97 12/06/24 12:00 O2 Del Method Room Air 12/06/24 08:28 Weight last 48 hrs Weight 322 lb Physical Exam 2 Narrative: General comfortable, awake, alert VS afebrile, normal Lungs: clear Cor: RRR Abd: soft, nontender Wound clean and dry, with 2 cm superficial opening Wound reinforced with dermabond and pressure dressing Ext: no edema Urinary Catheter Management: Fuentes: Cath Placed During This Visit: yes, but has since been removed by the nurse Reason for Continuing Indwelling Catheter: Decision to DC Catheter Urinary Catheter Date of Insertion: 12/05/24 Urinary Catheter Time of Insertion: 08:37 Date Urinary Catheter Removed: 12/05/24 Time Urinary Catheter Discontinued: 16:30 Data 12/05/24 22:36 A&P Assessment and plan 1. S/P : POD #1 RCS, bilateral salpingectomy doing well discharge to home today instructions and precautions given no heavy lifting more than 15 lbs no intercourse x six weeks call/return if fever, chills, nausea, vomiting, headaches, abdominal pain, bleeding, inability to void, swelling, leg pain; feelings of depression or mood changes; wound redness, swelling, or discharge; chest pain; shortness of breath f/u in December 10, 2024 or PRN PDMP PDMP Reviewed: Last Reviewed 12/06/24 11:44 EDT by Rajan Ortiz MD Attestations 2 Medical Necessity Statement*: patient s/p repeat , plan to discharge to home today Coding Level of Care Code Acute Code for Chg Fwd Diagnoses S/P Z98.891
--- NOTE | 2024-12-06 16:05 | PM.OBGYDC ---
Discharge Providers CORPORATE LEGAL MANAGER Date of Admission: 12/05/24 03:34 Date of Discharge: 12/06/24 Attending Provider at Admission: Rajan Ortiz MD Attending Provider at Discharge: Rajan Ortiz MD Consults: none Diagnoses at Discharge Discharge Diagnosis 1. S/P : Details from hospital stay: 34 y.o. [facility] December 21, 2024 At 37 w 5 d Inconsistent care Presented to L&D c/o fluid leakage h/o c-sections x two also desired permanent sterilization patient was found to have spontaneous rupture of membranes repeat and bilateral salpingectomy was performed without any complications Patient did well postoperatively She was discharged on the first postoperative day because baby was transferred to [place] for respiratory issues. Reason for Visit Reason for Visit: Possible SROM Brief History: 34 y.o. [facility] December 21, 2024 At 37 w 5 d Inconsistent care Presented to L&D c/o fluid leakage Hospital Course Hospital Course 34 y.o. [facility] December 21, 2024 At 37 w 5 d Inconsistent care Presented to L&D c/o fluid leakage h/o c-sections x two also desired permanent sterilization patient was found to have spontaneous rupture of membranes repeat and bilateral salpingectomy was performed without any complications Patient did well postoperatively She was discharged on the first postoperative day because baby was transferred to [place] for respiratory issues. Information Peripartum Data: Delivery Method: complications: none Physical Exam Narrative: General comfortable, awake, alert VS afebrile, normal Lungs: clear Cor: RRR Abd: soft, nontender Wound clean and dry, with 2 cm superficial opening Wound reinforced with dermabond and pressure dressing Ext: no edema Urinary Catheter Management: Fuentes: Cath Placed During This Visit: yes, but has since been removed by the nurse Reason for Continuing Indwelling Catheter: Decision to DC Catheter Urinary Catheter Date of Insertion: 12/05/24 Urinary Catheter Time of Insertion: 08:37 Date Urinary Catheter Removed: 12/05/24 Time Urinary Catheter Discontinued: 16:30 Discharge Data Studies Completed and Pending Pending at discharge Category Date Time Status Pathology: Surgical [PTH] Stat Pth 12/05/24 09:55 Received Laboratory Results WBC 9.50 10^3/uL (3.29-11.43) 12/05/24 22:36 RBC 3.11 10^6/uL (3.85-5.65) L 12/05/24 22:36 Hgb 9.70 g/dL (11.27-16.99) L 12/05/24 22:36 Hct 28.9 % (36-47) L 12/05/24 22:36 MCV 92.9 fl (85-98) 12/05/24 22:36 MCH 31.2 pg (27-33) 12/05/24 22:36 MCHC 33.6 g/dL (30-55) 12/05/24 22:36 RDW 13.8 % (12.1-15.1) 12/05/24 22:36 Plt Count 218 10^3/cmm (157-399) 12/05/24 22:36 MPV 10.2 fL (7.4-10.4) 12/05/24 22:36 Neut % (Auto) 79.7 % 12/05/24 04:00 Lymph % (Auto) 11.7 % 12/05/24 04:00 [place] % (Auto) 7.4 % 12/05/24 04:00 Eos % (Auto) 0.4 % 12/05/24 04:00 Baso % (Auto) 0.2 % 12/05/24 04:00 Neut # (Auto) 8.78 10^3/uL (1.8-7.7) H 12/05/24 04:00 Lymph # (Auto) 1.3 10^3/uL (0.8-4.8) 12/05/24 04:00 [place] # (Auto) 0.8 10^3/uL (0.2-0.9) 12/05/24 04:00 Eos # (Auto) 0.0 10^3/uL (0.0-0.8) 12/05/24 04:00 Baso # (Auto) 0.0 10^3/uL (0.0-0.1) 12/05/24 04:00 Nucleated RBC % (auto) 0.3 % 12/05/24 04:00 Nucleated RBCs # 0.0 /100WBC 12/05/24 04:00 Insulin-like GF I Positive 12/05/24 02:15 Urine Opiates Screen Negative ng/mL (Negative) 12/05/24 05:00 Ur Barbiturates Screen Negative ng/mL (Negative) 12/05/24 05:00 Ur Phencyclidine Scrn Negative ng/mL (Negative) 12/05/24 05:00 Ur Amphetamines Screen Negative ng/mL (Negative) 12/05/24 05:00 U Benzodiazepines Scrn Negative ng/mL (Negative) 12/05/24 05:00 Urine Cocaine Screen Negative ng/mL (Negative) 12/05/24 05:00 U Marijuana (THC) Screen Positive ng/mL (Negative) H 12/05/24 05:00 Blood Type A Negative 12/05/24 04:00 Rho(D) Type Rh negative 12/05/24 04:00 Antibody Screen Negative 12/05/24 04:00 Procedures Performed repeat low-transverse bilateral salpingectomy Vitals Last Vital Signs Temp 98.3 F 12/06/24 12:00 Pulse 90 12/06/24 12:00 Resp 16 12/06/24 12:00 BP 143/78 12/06/24 12:00 Pulse Ox 97 12/06/24 12:00 O2 Del Method Room Air 12/06/24 08:28 Results Labs OB ([facility]): Obstetrics US/Biophysical Profile 12/03/24 Blood Type A Negative 12/05/24 Antibody Screen Negative 12/05/24 Hct, (36-47) 28.9 % L 12/05/24 Hgb, (11.27-16.99) 9.70 g/dL L 12/05/24 Rho(D) Type Rh negative 12/05/24 Plt Count, (157-399) 218 10^3/cmm 12/05/24 Uric Acid, (2.4-5.7) 4.7 mg/dL 12/03/24 Urine Opiates Screen, (Negative) Negative ng/mL 12/05/24 Ur Barbiturates Screen, (Negative) Negative ng/mL 12/05/24 Ur Phencyclidine Scrn, (Negative) Negative ng/mL 12/05/24 Ur Amphetamines Screen, (Negative) Negative ng/mL 12/05/24 U Benzodiazepines Scrn, (Negative) Negative ng/mL 12/05/24 Urine Cocaine Screen, (Negative) Negative ng/mL 12/05/24 U Marijuana (THC) Screen, (Negative) Positive ng/mL H 12/05/24 Discharge Plan Discharge Patient Disposition: Home Condition: Stable Prescriptions: New oxycodone-acetaminophen [Percocet] 5-325 mg tablet 1 tab PO Q8H PRN (Reason: pain) Qty: 20 0RF Continued duloxetine 30 mg capsule,delayed release(DR/EC) 90 mg PO DAILY montelukast 10 mg tablet 10 mg PO DAILY budesonide-formoterol [Symbicort] 80-4.5 mcg/actuation Hfa Aerosol Inhaler See Rx Instructions .ROUTE .COMPLEX Rx Instructions: inhaled PT UNSURE OF DIRECTIONS, BUT HAS DIRECTIONS AT HOME. albuterol sulfate 90 mcg/actuation HFA aerosol inhaler 2 inh INHALATION Q4H PRN (Reason: shortness of breath or wheezing) Qty: 18 0RF Discharge Order = DC NOW: Discharge Order (Routine); Ordered 12/06/24 Ordered By: Rajan Ortiz Referrals: Rajan Ortiz MD [Physician, CORPORATE LEGAL MANAGER] - 12/12/24 9:00 am Discharge Diet: Usual diet Discharge Activity: Increase activity as tolerated Patient Instructions: Depression (DC), Opioid Safety (DC), Preeclampsia and Eclampsia After Delivery (GEN), Hemorrhage (DC), OB [facility], OB Discharge Report, OB Food/Drug Interaction Guide, Opioid Safety, OB Home Care, Patient Portal & Eddie Instructions, Abnormal Bleeding Discharge Attestations CORPORATE LEGAL MANAGER Time Spent in Discharge Care*: less than 30 min Coding Level of Care Code Acute Code for Chg Fwd Diagnoses S/P Z98.891
== END 2024-12-06 12:25 | disposition home or self-care (01) | DRG 784 ==
LOC: OPOB 03:34 → OBGYN 03:34
PROVIDERS: Admitting Provider Obstetrics & Gynecology; Visit Provider Obstetrics & Gynecology
PROC: 10D00Z1 Extraction of Products of Conception, Low, Open Approach (ICD-10-PCS; CPT 59514; principal; 2024-12-05 08:00)
DX: O34.211 Maternal care for low transverse scar from previous cesarean delivery (principal); O99.324 Drug use complicating childbirth; N85.8 Other specified noninflammatory disorders of uterus; Z3A.37 37 weeks gestation of pregnancy; Z37.0 Single live birth; F12.90 Cannabis use, unspecified, uncomplicated; O99.344 Other mental disorders complicating childbirth; F41.1 Generalized anxiety disorder; O99.52 Diseases of the respiratory system complicating childbirth; J45.909 Unspecified asthma, uncomplicated; Z88.0 Allergy status to penicillin
CPT/HCPCS: 36415; 51702; 59025; 59409; 80306; 84112; 85025; 85027; 86850; 86900; 88302; 88307; 94640; 99211; J1580; J1885; J2274; J2371; J2405; J2765; J3010; J3490; J7121; J7626; J9999

== ENCOUNTER 2025-03-19 18:25 | Inpatient (IN) | payer MEDICAID, SELFPAY ==
--- OUTSIDE RECORDS SUMMARY | 2023-08-30 07:50 | XMS_ITS | Continuity of Care Document ---
Author Organization [facility] Address [address] [place] [address] Phone Care Team Providers Care Dialysis Rn Name Role Phone Lucila Reyna Unavailable Unavailabl e Allergies, Adverse Reactions, Alerts Substance Reaction Status Criticality No Known Allergies Active No Inform ation Medications Medication Instructions Dosage Effective Dates (start - stop) Status Comments ziprasidone 40 mg capsule TAKE ONE CAPSULE BY MOUTH TWICE DAILY - Active duloxetine 60 mg capsule,delayed release TAKE ONE CAPSULE BY MOUTH ONCE A DAY - Active duloxetine 30 mg capsule,delayed release TAKE ONE CAPSULE BY MOUTH ONCE A DAY - Active clonidine HCl 0.1 mg tablet TAKE ONE TABLET BY MOUTH EVERY NIGHT AT BEDTIME - Active Vitamin D2 1,250 mcg (50,000 unit) capsule TAKE ONE CAPSULE BY MOUTH ONCE WEEKLY - Active FeroSul 325 mg (65 mg iron) tablet TAKE ONE TABLET BY MOUTH daily - Active Ventolin HFA 90 mcg/actuation aerosol inhaler INHALE 1 PUFF BY MOUTH EVERY 4-6 HOURS NEEDED - Active montelukast 10 mg tablet TAKE ONE TABLET BY MOUTH EVERY DAY - Active Advair Diskus 500 mcg-50 mcg/dose powder for inhalation inhale 1 PUFF by MOUTH every 12 hours - Active levocetirizine 5 mg tablet TAKE 1 TABLET BY MOUTH ONCE DAILY - Active Vraylar 3 mg capsule TAKE 1 CAPSULE BY MOUTH ONCE DAILY Oct-03-2023 - Active propranolol 20 mg tablet TAKE 1 TABLET BY MOUTH ONCE DAILY IN THE EVENING - Active omeprazole 40 mg capsule,delayed release TAKE 1 CAPSULE BY MOUTH ONCE DAILY - Active ketorolac 60 mg/2 mL intramuscular solution Administered in the office - No Longer Active cyclobenzaprine 10 mg tablet take 1 tablet by oral route 3 times every day as needed 10 MG - No Longer Active prednisone 20 mg tablet take 1 tablet by MOUTH ONCE daily FOR 5 DAYS - No Longer Active metronidazole 500 mg tablet take 1 tablet by MOUTH TWO times daily FOR SEVEN DAYS - No Longer Active doxycycline hyclate 100 mg capsule take 1 capsule by MOUTH twice daily FOR SEVEN DAYS - No Longer Active Advair Diskus 250 mcg-50 mcg/dose powder for inhalation INHALE 1 PUFF BY MOUTH TWICE DAILY - No Longer Active nystatin 100,000 unit/mL oral suspension SWISH AND SWALLOW 5ML BY MOUTH 4 TIMES DAILY - No Longer Active Vraylar 1.5 mg capsule TAKE 1 CAPSULE BY MOUTH ONCE DAILY - No Longer Active Procedures Procedure Date Tordal Ketorolac Per 15mg THER/PROPH/DIAG INJ, SC/IM OFFICE/OUTPATIENT VISIT, [facility] [place] Advance Directives Directive Yes / No Effective Date File Name No Information Encounters Encounter Description Practice Location Reason(s) For Visit Diagnoses Date Provider Providers Copied on Encounter OFFICE/OUTPA TIENT VISIT, NEW [facility], [address] [place] [address], [place], [place], [id number], [place] tel:[phone] [facility] chest pain (chief complaint) Pain in right shoulderIntercosta l pain 4 Billy Gaytan. [address] [place] [address] [place], [id number] , [place]. tel:[phone] Referring Provider: Lucila Cervantes, [address] [place], [address] . tel:[phone] Family History Family Member Type Diagnosis Age At Onset Problem Family history of Cardiovasc ular disease Problem Family history of Thyroid di sorder Problem Family history of Asthma Problem Family history of Hyperchole sterolemia Problem Family history of Depression Payers Payer name Insurance type Covered alliance party ID Authorrubena jakub(s) [place] Medicaid MC [id number] [facility] Plan [id number] Social History Type Description Quantity Date Captured Comments Alcohol Use Details Caffeine Use Details Unknown Tobacco Use Status Current non-smoker Smoking Status Never smoker Non-Smoking Tobacco Use Details : No Details Available : No Details Available Sex Female Vital Signs Date / Time: Height Weight BMI Pulse Rate Blood Pressure Temperature Respiratory Rate Body Surface Area Head Circumference Head Circ. Percentile Wt./Shakeel. Percentile BMI percentile Pulse Ox Inhaled Ox 2:19 PM 67.00 in 128.820 kg (284.00 lbs) 44.4 8 kg/m eter (2) 76 /min 122/70 mm[Hg] 97.50 F 16 /min 97 % Chief Complaint And Reason For Visit From encounter dated '08/30/2023 13:50'. chest pain (chief complaint). Description: The client presents with a complaint of chest pain. The symptoms began 1 day ago and began gradually. The problem occurs intermittently. The symptoms have remained unchanged. The pain is in the right sided. The client describes the pain as sharp. It radiates to the right. The client also complains of chest discomfort. The client denies diaphoresis, dyspnea, fatigue, nausea, palpitations and vomiting. Relevant history for this client includes obesity but excludes tobacco use. The symptoms are aggravated by inspiration, exertion and palpation. Additional information: Pt states she has tried tylenol 500mg and ibuprofen 400mg which provided some relief. Pt report she had a similar episode 1 wk ago. Reason For Referral Reason For Referral No Information History Of Present Illness Encounter Date Complaint History Of Prese nt Illness chest pain The client prese nts with a complaint of chest pain. The symptoms began 1 day ago and began gradually. The problem occurs intermittently. The symptoms have remained unchanged. The pain is in the right sided. The client describes the pain as sharp. It radiates to the right. The client also complains of chest discomfort. The client denies diaphoresis, dyspnea, fatigue, nausea, palpitations and vomiting. Relevant history for this client includes obesity but excludes tobacco use. The symptoms are aggravated by inspiration, exertion and palpation. Additional information: Pt states she has tried tylenol 500mg and ibuprofen 400mg which provided some relief. Pt report she had a similar episode 1 wk ago. Functional Status Date Functional Assessmen t Pain Score 6/10 Instructions Date Instruction Additional Infor mation Toradol 60mg IM give n in clinicRx: cyclobenzaprine 10mg TID PRN May continue ibuprofen/tylenol as needed. Avoid ibuprofen use today d/t toradol.Ice or heat to area when resting Gentle stretching and ROM exercisesFollow up with PCP for OMM discussionRTC if s/s worsen or do not improve. Related to Intercostal pain Toradol 60mg IM give n in clinicRx: cyclobenzaprine 10mg TID PRN May continue ibuprofen/tylenol as needed. Avoid ibuprofen use today d/t toradol.Ice or heat to area when resting Gentle stretching and ROM exercisesFollow up with PCP for OMM discussionRTC if s/s worsen or do not improve. Related to Pain in right shoulder Assessments Type Assessment Date assessment Pain in right shoulder assessment Intercostal pain impression 33-year-old female p resenting to urgent care with reports of right-sided chest pain that radiates to her shoulder and arm. Patient is able to pinpoint where the pain is at her chest. Pain is located at right substernal side of chest and can palpate area of tenderness to shoulder and anterior aspect of arm. 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 Patient reports she has been having some episodes for couple weeks but today the pain significantly worsened. Patient reports she took Tylenol and Motrin which does provide some relief however she ran out of this yesterday. Patient reports the pain is worse with movement, inspiration, and palpation. Mental Status Date Cognitive Assessment Orientation - Mayer ed to time, place, person, situation. Patient Care Teams Name Effective Dates (start - stop) Status Members No Information
--- OUTSIDE RECORDS SUMMARY | 2023-09-07 04:00 | XMS_ITS | Continuity of Care Document ---
Author Organization [facility] Address [address] [place] [address] Phone Care Team Providers Care Harnessmaker Name Role Phone Rochelle Schulz APRN Unavailable Unavailable Allergies, Adverse Reactions, Alerts Substance Reaction Status Criticality PENICILLIN Active No Information CEPHALEXIN MONOHYDRATE Active No In formation Medications Medication Instructions Dosage Effective Dates (start - stop) Status Comments Geodon 40 mg capsule take 1 capsule by oral route 2 times every day with food 40 MG - Active Cymbalta 30 mg capsule,delayed release take 1 capsule by oral route 3 times every day 30 MG - Active LEVOCARNITINE (unknown strength) take 3 tablet by oral route 3 times every day with meals Not Available - Active Procedures Procedure Date PSYCH DIAG EVAL W/MED SRVCS Telehealth [facility] Claim Split Advance Directives Directive Yes / No Effective Date File Name Other Directive No N/A N/A WARNING:The information contained in this section is historical and is provided for information only and does not constitute a legal document or any assurance that the information is still accurate. Please verify the information with the alex of the legal document before using it for clinical purposes. Encounters Encounter Description Practice Location Reason(s) For Visit Diagnoses Date Provider Providers Copied on Encounter PSYCH DIAG EVAL W/MED SRVCS Telehealth [facility], [address] [place], [id number], [place] tel:[phone] [facility] Schizoaffect buddy Disorder, Bipolar typeGenerali zed Anxiety DisorderDepr essionCannab is useFamily history of other mental and behavioral disordersFam zuleika history of alcohol abuse and dependenceMo rbid (severe) obesity due to excess calories Jazzhayley Byrd. [address], [id number] [place], [id number], [place]. tel:[phone] Referring Provider: Rochelle Jazz, [address] [id number] , [place], [address]. tel:[phone] [facility], [address], [place], [id number], [place] tel:[phone] [facility] No Information Jazz Byrd. [address], [id number], [place], [id number], [place]. tel:[phone] Family History Family Member Type Diagnosis Age At Onset No Information Payers Payer name Insurance type Covered republican ID Anthony call(s[facility] [id number] Social History Type Description Quantity Date Captured Comments Alcohol Use Details Unknown Caffeine Use Details Unknown Tobacco Use Status Heavy cigarette smok er (20-39 cigs/day) Smoking Status Heavy tobacco smoker Smoking Tobacco Use Details Cigarette: No Details Available Cigarette: 1 Packs per day Sex Female Sexual Orientation Straight or heterosexual Gender Identity Female Chief Complaint And Reason For Visit No Information Reason For Referral Reason For Referral No Information Plan Of Treatment Date Type Action Status Goal HPV. Due on due Goal HPV, high+low-risk. Due on due Goal Depression screening. Due on due Goal Diabetes screening. Due on due Goal Tdap. Due on due Goal Influenza vaccine. Due on due Goal Pap/HPV testing. Due on due Goal Unhealthy drug use screening . Due on due Goal Hepatitis C screening. Due o n due Goal Td vaccine. Due on due Goal Tobacco cessation counseling completed History Of Present Illness Encounter Date Complaint History Of Prese nt Illness No Information Functional Status Date Functional Assessmen t Pain Score 0/10 Instructions Date Instruction Additional Infor mation No Information Assessments Type Assessment Date assessment Schizoaffective Disorder, Bipola r type assessment Generalized Anxiety Disorder Sep assessment Depression assessment Cannabis use assessment Family history of other mental a nd behavioral disorders assessment Family history of alcohol abuse and dependence assessment Morbid (severe) obesity due to e xcess calories Patient Care Teams Name Effective Dates (start - stop) Status Members No Information
--- OUTSIDE RECORDS SUMMARY | 2024-05-31 04:00 | XMS_ITS ---
Author Organization [facility] Address [address] [place], [place] [address] Care Team Providers Care Liner Man Name Role Phone Yunier Greenberg DO Unavailable [phone] REASON FOR VISIT allergies Encounters Encounter Location Date Provider Diagnosis [address] [address] [place] [address] 05/31/2024 Yunier Greenberg Plan Of Treatment No Information Progress Notes * Kristin YEUNG RDOB: [birth year] (34 yo F)Acc No.[id number]:05/31/2024 Progress Notes Patient: Kristin JAIME Provider: Hai Greenberg DO, FAAAAI, FACOI :1990 A ge:34 Y S ex:Female Date:05/31/2024 Phone: Address:[address] Subjective: * Chief Complaints: * 1 . Allergies. * Medical History: Objective: * Vitals: Assessment: Plan: * Treatment: * Billing Information: * Visit Code: * Procedure Codes: * Electronic signature of Jackelyn Greenberg DO, DO on 03/19/2025 at 06:31 PM SOFTBALL COACH Sign off status: Pending * Provider: Hai Greenberg DO, FAAAAI, FACOI Date: 0 05/31/2024 Generated for Hope ng/Zayda/eTransmitting on: 1 05/20/2024 06:31 PM SOFTBALL COACH
--- OUTSIDE RECORDS SUMMARY | 2024-06-21 03:00 | XMS_ITS ---
Author Organization [facility] Address [address] [place], [place] [id number] Care Team Providers Care Food Mixer Repairer Name Role Phone Yunier Greenberg DO Unavailable REASON FOR VISIT Allergies Encounters Encounter Location Date Provider Diagnosis [facility] [address] [place] [address] 06/21/2024 Yunier Greenberg Plan Of Treatment No Information Progress Notes * Kristin YEUNG RDOB: [birth year] (34 yo F)Acc No.[id number]:06/21/2024 Progress Notes Patient: Kristin JAIME Provider: Hai Greenberg DO, FAAAAI, FACOI :1990 A ge:34 Y S ex:Female Date:06/21/2024 Phone: Address[address] Subjective: * Chief Complaints: * 1 . Allergies. * Medical History: Objective: * Vitals: Assessment: Plan: * Treatment: * Billing Information: * Visit Code: * Procedure Codes: * Electronic signature of Jackelyn Greenberg DO, DO on 03/19/2025 at 06:31 PM CATTLE DEHORNER Sign off status: Pending * Provider: Hai Greenberg DO, FAAAAI, FACOI Date: 0 06/21/2024 Generated for Hope ng/Fagelyg/eTransmitting on: 1 05/20/2024 06:31 PM CATTLE DEHORNER
--- OUTSIDE RECORDS SUMMARY | 2025-02-06 08:43 | XMS_ITS | Continuity of Care Document ---
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 - Active meclizine 25 mg tablet take 1 tablet by oral route 4 times every day as needed - Active Formula tablet take 1 tablet by oral route every day - Active prednisone 20 mg tablet take 1 tablet by oral route every day 20 MG - Active Vitamin B-12 1,000 mcg tablet - Active Spiriva Respimat 1.25 mcg/actuation solution for inhalation inhale 2 puff by inhalation route every day 2.5 MCG - Active albuterol sulfate HFA 90 mcg/actuation aerosol inhaler inhale 1 puff by inhalation route every 4 - 6 hours as needed 1 puff - Active Prescribed in ER on 07/29/24 Vitamin B-6 25 mg tablet - Active Medical Cannabis MISCELL - Active Cymbalta 30 mg capsule,delayed release take 3 capsule by oral route every day 90 MG - Active Singulair 10 mg tablet take 1 tablet by oral route every day in the evening 10 MG - Active Vraylar 3 mg capsule take 1 capsule by oral route every day 3 MG - Active Problems Condition Type Effective Dates (start - stop) Clini tessie Status Comments No Known Problems Procedures Procedure Date No Charge Nurse Visit [facility] OFFICE O/P EST LOW OFFICE O/P EST LOW Denture Impressions [facility] OFFICE O/P EST LOW [facility] OFFICE O/P EST LOW No Charge Nurse Visit [facility] OFFICE O/P EST LOW Denture Impressions Surgical Removal Of Erupted Tooth Requir ing Elevat COMP ORAL EVALUATION - NEW/EST PT PANORAMIC IMAGE [facility] OFFICE O/P EST LOW OFFICE O/P EST LOW [facility] OFFICE O/P EST LOW No Charge Nurse Visit [facility] OFFICE O/P EST LOW URINE TEST [facility] Scrn nd pos nd prov of rec OFFICE O/P EST MOD LTD ORAL EVALUATION - PROBLEM FOCUS INTRAORAL PERIAPICAL FIRST IMAGE 2023 EXTRAC ERUPTED TOOTH/EXPOSED ROOT URINALYSIS, AUTO, W/O SCOPE OFFICE/OUTPATIENT VISIT, EST FLU VACCINE NO PRESERV 3 & > IMMUNIZATION ADMIN OFFICE/OUTPATIENT VISIT, NEW URINALYSIS, AUTO, W/O SCOPE URINE TEST Advance Directives Directive Yes / No Effective Date File Name No Information Encounters Encounter Description Practice Location Reason(s) For Visit Diagnoses Date Provider Providers Copied on Encounter [facility], [address] [place] [address], [id number], [place] tel:[phone] [facility] No Information Speak Noam. [address], [place], [id number]. tel:[phone] No Charge Nurse Visit [facility], [address] [place] [address], [id number], [place] tel:[phone] [facility] BP check 5 Speak Noam. [address], [place], [id number]. tel:[phone] Referring Provider: Noam Castillo, [address] [place], [address] . tel:[phone] OFFICE O/P EST [facility], [address] [place] [address], [id number], [place] tel:[phone] [facility] Maternal care for low transverse scar from previous deliveryMaternal morbid obesity in third trimester, antepartumMental disorder during in third trimesterMarijuana use during pregnancyCannabis use, unspecified, [id number] weeks gestation of pregnancyEncounter for screening, unspecified Speak Noam. [address], [place], [id number]. tel:[phone] Referring Provider: Noam Castillo, [address] [place], [address] . tel:[phone] OFFICE O/P EST LOW [facility], [address] [place] [address], [id number], [place] tel:[phone] [facility] Threatened premature labor in third [id number] weeks gestation of 5 Ty Boyce. [address], [place], [id number], [place]. tel:[phone] [facility], [address] [place] [address], [id number], [place] tel:[phone] [facility] No Information 5 Speak Noam. [address], [place], [id number]. tel:[phone] [facility], [address] [place] [address], [id number], [place] tel:[phone] [facility] No Information 5 Radhames Taylor. Ross Collier, [address], [place], [id number], [place]. tel:[phone] Referring Provider: Ross Fong [address] [place], [address] . tel:[phone] OFFICE O/P EST LOW [facility], [address] [place] [address], [id number], [place] tel:[phone] [facility] 31 weeks gestation of pregnancyMaternal care for low transverse scar from previous deliveryEncounter for screening, unspecifiedRh negative state in antepartum periodUterine size date discrepancy, antepartumMaternal morbid obesity in third trimester, antepartum 5 Fajkus Lorena. [address], [place], [id number], [place]. tel:[phone] Referring Provider: Lorena Beatty, [address] [place], [address] . tel:[phone] [facility], [address] [place] [address], [id number], [place] tel:[phone] [facility] No Information 5 Fajkus Lorena. [address], [place], [id number], [place]. tel:[phone] [facility], [address] [place] [address], [id number], [place] tel:[phone] [facility] Extreme poverty 5 Fajkus Lorena. [address], [place], [id number], [place]. tel:[phone] OFFICE O/P EST LOW [facility], [address] [place] [address], [id number], [place] tel:[phone] [facility] 29 weeks gestation of pregnancyEncounter for screening, unspecifiedDrug use complicating , third trimesterMental disorder during in third trimesterMaternal care for low transverse scar from previous deliveryRh negative state in antepartum periodUnspecified blood type, rh negativeNausea and vomiting in pregnancyVaginal itching 5 Parth Carrillo. [address], [place], [id number], [place]. tel:[phone] Referring Provider: Lorena Beatty, [address] [place], [address] . tel:[phone] No Charge Nurse Visit [facility], [address] [place] [address], [id number], [place] tel:[phone] [facility] 28 weeks gestation of pregnancyAbnormal glucose tolerance in 5 Speak Noam. [address], [place], [id number]. tel:[phone] Referring Provider: Noam Castillo, [address] [place], [address] . tel:[phone] [facility], [address] [place] [address], [id number], [place] tel:[phone] [facility] No Information Speak Noam. [address], [place], [id number]. tel:[phone] [facility], [address] [place] [address], [id number], [place] tel:[phone] [facility] 27 weeks gestation of pregnancyAbnormal CBC 5 Speak Noam. [address] [place], [id number]. tel:[phone] OFFICE O/P EST LOW [facility], [address] [place] [address], [id number], tel:[phone] [facility] 27 weeks gestation of pregnancyDrug use complicating , second trimesterEncounter for screening, unspecifiedMental disorder during in second trimesterMaternal care for low transverse scar from previous deliveryRh negative state in antepartum period 5 Darren Santacruz. [address], [place], [id number]. tel:[phone] Referring Provider: Noam Castillo, [address] [place], [address] . tel:[phone] [facility], [address] [place] [address], [id number], [place] tel:[phone] [facility] No Information 5 Radhames Taylor. Ross Collier, [address], [place], [id number], [place]. tel:[phone] Referring Provider: Ross Fong [address] [place], [address] . tel:[phone] [facility], [address] [place] [address], [id number], [place] tel:[phone] [facility] No Information 5 Radhames Taylor. Ross Collier, [address], [place], [id number], [place]. tel:[phone] Referring Provider: Ross Fong [address] [place], [address] . tel:[phone] [facility], [address] [place] [address], [id number], [place] tel:[phone] [facility] No Information 5 Radhames Taylor. Ross Collier, [address], [place], [id number], [place]. tel:[phone] Referring Provider: Ross Fong [address] [place], [address] . tel:[phone] [facility], [address] [place] [address], [id number], [place] tel:[phone] [facility] No Information Malik-0 5-202 5 Fajkus Lorena. [address], [place], [id number], [place]. tel:[phone] OFFICE O/P EST [facility], [address] [place] [address], [id number], [place] tel:[phone] [facility] 24 weeks gestation of pregnancyRh negative state in antepartum periodDrug use complicating , second trimesterEncounter for screening, unspecified 0 4- 5 Fajkus Lorena. [address], [place], [id number], [place]. tel:[phone] Referring Provider: Lorena Beatty, [address] [place], [address] . tel:[phone] [facility], [address] [place] [address], [id number], [place] tel:[phone] [facility] Encounter for follow-up ultrasound of anatomy 3- 5 Ty Boyce. [address] [place], [place], [id number], [place]. tel:[phone] OFFICE O/P EST [facility], [address] [place] [address], [id number], [place] tel:[phone] [facility] 20 weeks gestation of pregnancyRh negative state in antepartum periodDrug use complicating , second trimesterEncounter for screening, unspecified 7- 5 Fajkus Lorena. [address], [place], [id number], [place]. tel:[phone] Referring Provider: Noam Castillo, [address] [place], [address] . tel:[phone] [facility], [address] [place] [address], [id number], [place] tel:[phone] [facility] Encounter for follow-up ultrasound of anatomy 5 Speak oNam. [address], [place], [id number]. tel:[phone] [facility], [address] [place] [address], [id number], [place] tel:[phone] [facility] No Information 5 Speak Noam. [address], [place], [id number]. tel:[phone] OFFICE O/P EST LOW [facility], [address] [place] [address], [id number], [place] tel:[phone] [facility] 16 weeks gestation of pregnancyEncounter for screening, unspecifiedDrug use complicating , second trimesterMaternal care for low transverse scar from previous deliveryNausea/vom iting in pregnancyMental disorder during in second trimesterTrichomon al vaginitis during , antepartumRh negative state in antepartum periodUnspecified blood type, rh negativeEncounter for screening for malformation using ultrasound 5 Speak Noam. [address], [place], [id number]. tel:[phone] Referring Provider: Noam Castillo, [address] [place], [address] . tel:[phone] No Charge Nurse Visit [facility], [address] [place] [address], [id number], [place] tel:[phone] [facility] Weight check (chief complaint) Weight loss 5 Darren Santacruz. [address], [place], [id number]. tel:[phone] Referring Provider: Noam Castillo, [address] [place], [address] . tel:[phone] OFFICE O/P EST LOW [facility], [address] [place] [address], [id number], [place] tel:[phone] [facility] 13 weeks gestation of pregnancyEncounter for screening, unspecifiedMaterna l care for low transverse scar from previous deliveryMental disorder during in first trimesterFinancial insecurityDrug use complicating in first trimesterNausea/vo miting in 5 Ty Boyce. [address], [place], [id number], [place]. tel:[phone] Referring Provider: Carli Geiger, [address] [place], [address] . tel:[phone] [facility], [address] [place] [address], [id number], [place] tel:[phone] [facility] Trichomonal vaginitis during , antepartumTrichomo nal vulvovaginitis Jun- 5 Speak Noam. [address], [place], [id number]. tel:[phone] OFFICE O/P EST MOD [facility], [address] [place] [address], [id number], [place] tel:[phone] [facility] Positive urine testEncounter for screening, unspecifiedMental disorder during in first trimesterMaternal care for low transverse scar from previous deliveryDrug use complicating in first trimesterBody mass index (BMI) 45.0-49.9, adultNausea/vomiti ng in pregnancyLess than 8 weeks gestation of pregnancyFinancial insecurityPregnanc y with inconclusive viability, single or unspecified fetus 5 Darren Santacruz. [address], [place], [id number]. tel:[phone] Referring Provider: Noam Castillo, [address] [place], [address] . tel:[phone] [facility], [address] [place] [address], [id number], [place] tel:[phone] [facility] No Information 4 Radhames Taylor. Ross Collier, [address], [place], [id number], [place]. tel:[phone] Referring Provider: Ross Fong [address] [place], [address] . tel:[phone] OFFICE/OUTPA TIENT VISIT, [facility], [address] [place] [address], [id number], [place] tel:[phone] [facility] alexia (chief complaint) Unspecified screeningAntenatal screening for malformation using ultrasonicsAntenat al screening for raised alpha-fetoprotein levels in amniotic fluidScreening for cystic fibrosis 3 Speak Noam. [address], [place], [id number]. tel:[phone] OFFICE/OUTPA TIENT VISIT, [facility], [address] [place] [address], [id number], [place] tel:[phone] [facility] Supervision of other normal pregnancyAsthmaInf luenza VaccinePrevious delivery, antepartum condition or complicationUnspec ified leukemia, in remissionUnspecifi ed screeningPregnancy examination or test, positive result 2 Ty Boyce. [address], [place], [id number], . tel:[phone] Family History Family Member Type Diagnosis Age At Onset Problem Family history of COPD Mother Problem (finding) hypothyroidism Mother Problem (finding) borderline diabetes Father Problem Seizure disorder (Cause Of D eath) Maternal grandmother Problem (finding) hypertension Mother Problem Depression Immunizations Vaccine Date Status Comments flu (split) preservative theron e, 3 yrs or older administered Source: New Immuniza tion Record Payers Payer name Insurance type Covered constitution party ID Authoriza tion(s) [place] [employer] [facility] [id number] Social History Type Description Quantity Date Captured Comments Alcohol Use Details Unknown Caffeine Use Details Unknown Tobacco Use Status No Information Smoking Status No Information Sex Female Sexual Orientation Straight or heterosexual Gender Identity Female Chief Complaint And Reason For Visit No Information Reason For Referral Reason For Referral No Information Plan Of Treatment Date Type Action Status Goal HPV. Due on due Goal BMI Plan. Due on due Goal Hepatitis C scre ening. Due on due Goal Eye Exam. Due on due Goal SBIRT. Due on du e Goal Annual Physical Exam. Due on due Goal Pap Image Guided , rfx HPV ASCU. Due on due Goal Pap/HPV Testing. Due on due Goal PHQ9. Due on due Goal Pre-Diabetes Scr eener. Due on due Goal Pap. Due on due Goal Dental exam. Due on due Goal Depression scree amado. Due on due Goal Fall Risk Plan. Due on due Goal Pre-Diabetes Scr eener. Due on due Goal HPV. Due on due Goal PHQ9. Due on due Goal Fall Risk Plan. Due on due Goal Pap. Due on due Goal Pap Image Guided , rfx HPV ASCU. Due on due Goal Eye Exam. Due on due Goal Pap/HPV Testing. Due on due Goal Depression scree amado. Due on due Goal SBIRT. Due on du e Goal Dental exam. Due on due Goal Hepatitis C scre ening. Due on due Goal BMI Plan. Due on due Goal Annual Physical Exam. Due on due Goal Hepatitis C scre ening. Due on due Goal Dental exam. Due on due Goal Depression scree amado. Due on due Goal HPV. Due on due Goal Pap Image Guided , rfx HPV ASCU. Due on due Goal PHQ9. Due on due Goal SBIRT. Due on du e Goal Pap/HPV Testing. Due on due Goal Pap. Due on due Goal Fall Risk Plan. Due on due Goal Eye Exam. Due on due Goal BMI Plan. Due on due Goal Annual Physical Exam. Due on due Goal Pre-Diabetes Scr eener. Due on due Goal Dental exam. Due on due Goal Eye Exam. Due on due Goal PHQ9. Due on due Goal SBIRT. Due on du e Goal Pap. Due on due Goal Annual Physical Exam. Due on due Goal HPV. Due on due Goal Fall Risk Plan. Due on due Goal Hepatitis C scre ening. Due on due Goal BMI Plan. Due on due Goal Pap Image Guided , rfx HPV ASCU. Due on due Goal Depression scree amado. Due on due Goal Pap/HPV Testing. Due on due Goal Pre-Diabetes Scr eener. Due on due Goal Dental exam. Due on due Goal Depression scree amado. Due on due Goal Pap/HPV Testing. Due on due Goal SBIRT. Due on du e Goal Eye Exam. Due on due Goal Pap Image Guided , rfx HPV ASCU. Due on due Goal PHQ9. Due on due Goal Pre-Diabetes Scr eener. Due on due Goal Hepatitis C scre ening. Due on due Goal BMI Plan. Due on due Goal Annual Physical Exam. Due on due Goal HPV. Due on due Goal Fall Risk Plan. Due on due Goal Pap. Due on due Goal Fall Risk Plan. Due on due Goal Pap. Due on due Goal Pap Image Guided , rfx HPV ASCU. Due on due Goal Annual Physical Exam. Due on due Goal BMI Plan. Due on due Goal Dental exam. Due on 025 due Goal Pre-Diabetes Scr eener. Due on due Goal SBIRT. Due on du e Goal Depression scree amado. Due on due Goal Hepatitis C scre ening. Due on due Goal Eye Exam. Due on due Goal Pap/HPV Testing. Due on due Goal PHQ9. Due on due Goal HPV. Due on due Goal Dental exam. Due on 025 due Goal PHQ9. Due on due Goal SBIRT. Due on du e Goal Pap/HPV Testing. Due on due Goal Eye Exam. Due on due Goal Annual Physical Exam. Due on due Goal Hepatitis C scre ening. Due on due Goal Depression scree amado. Due on due Goal Pre-Diabetes Scr eener. Due on due Goal Pap. Due on due Goal Fall Risk Plan. Due on due Goal Pap Image Guided , rfx HPV ASCU. Due on due Goal BMI Plan. Due on due Goal HPV. Due on due Goal Pap Image Guided , rfx HPV ASCU. Due on due Goal HPV. Due on due Goal SBIRT. Due on du e Goal Dental exam. Due on due Goal BMI Plan. Due on due Goal Eye Exam. Due on due Goal Depression scree amado. Due on due Goal Annual Physical Exam. Due on due Goal Pap. Due on due Goal Hepatitis C scre ening. Due on due Goal Fall Risk Plan. Due on due Goal Pre-Diabetes Scr eener. Due on due Goal PHQ9. Due on due Goal Pap/HPV Testing. Due on due Goal Dental exam. Due on due Goal Annual Physical Exam. Due on due Goal Pap. Due on due Goal HPV. Due on due Goal Pap Image Guided , rfx HPV ASCU. Due on due Goal Fall Risk Plan. Due on due Goal Hepatitis C scre ening. Due on due Goal Pap/HPV Testing. Due on due Goal Eye Exam. Due on due Goal Pre-Diabetes Scr eener. Due on due Goal PHQ9. Due on due Goal BMI Plan. Due on due Goal Depression scree amado. Due on due Goal SBIRT. Due on du e Goal Pap Image Guided , rfx HPV ASCU. Due on due Goal Pre-Diabetes Scr eener. Due on due Goal Annual Physical Exam. Due on due Goal Dental exam. Due on due Goal Pap/HPV Testing. Due on due Goal SBIRT. Due on du e Goal Depression scree amado. Due on due Goal PHQ9. Due on due Goal Eye Exam. Due on due Goal Hepatitis C scre ening. Due on due Goal Fall Risk Plan. Due on due Goal BMI Plan. Due on due Goal HPV. Due on due Goal Pap. Due on due Goal Hepatitis C scre ening. Due on due Goal SBIRT. Due on du e Goal Pre-Diabetes Scr eener. Due on due Goal Eye Exam. Due on due Goal Pap Image Guided , rfx HPV ASCU. Due on due Goal Dental exam. Due on due Goal PHQ9. Due on due Goal Pap/HPV Testing. Due on due Goal Depression scree amado. Due on due Goal Annual Physical Exam. Due on due Goal Pap. Due on due Goal Fall Risk Plan. Due on due Goal BMI Plan. Due on due Goal HPV. Due on due Goal Annual Physical Exam. Due on due Goal Depression scree amado. Due on due Goal Eye Exam. Due on due Goal Pap Image Guided , rfx HPV ASCU. Due on due Goal Pap. Due on due Goal SBIRT. Due on du e Goal Pre-Diabetes Scr eener. Due on due Goal Fall Risk Plan. Due on due Goal HPV. Due on due Goal Pap/HPV Testing. Due on due Goal BMI Plan. Due on due Goal PHQ9. Due on due Goal Dental exam. Due on due Goal Hepatitis C scre ening. Due on due Goal Eye Exam. Due on due Goal Depression scree amado. Due on due Goal Pap/HPV Testing. Due on due Goal Annual Physical Exam. Due on due Goal Pap. Due on due Goal HPV. Due on due Goal Fall Risk Plan. Due on due Goal Dental exam. Due on due Goal BMI Plan. Due on due Goal SBIRT. Due on du e Goal Hepatitis C scre ening. Due on due Goal Pap Image Guided , rfx HPV ASCU. Due on due Goal Pre-Diabetes Scr eener. Due on due Goal PHQ9. Due on due Goal Hepatitis C scre ening. Due on due Goal Eye Exam. Due on due Goal PHQ9. Due on due Goal Pre-Diabetes Scr eener. Due on due Goal Annual Physical Exam. Due on due Goal HPV. Due on due Goal SBIRT. Due on du e Goal Pap. Due on due Goal Pap Image Guided , rfx HPV ASCU. Due on due Goal Depression scree amado. Due on due Goal Dental exam. Due on due Goal Pap/HPV Testing. Due on due Goal BMI Plan. Due on due Goal Fall Risk Plan. Due on due Goal PHQ9. Due on due Goal Pap/HPV Testing. Due on due Goal BMI Plan. Due on due Goal Depression scree amado. Due on due Goal Pap. Due on due Goal SBIRT. Due on du e Goal Fall Risk Plan. Due on due Goal Annual Physical Exam. Due on due Goal Eye Exam. Due on due Goal Pre-Diabetes Scr eener. Due on due Goal Hepatitis C scre ening. Due on due Goal Pap Image Guided , rfx HPV ASCU. Due on due Goal HPV. Due on due Goal Dental exam. Due on due Goal Dental exam. Due on due Goal Hepatitis C scre ening. Due on due Goal HPV. Due on due Goal Eye Exam. Due on due Goal PHQ9. Due on due Goal Annual Physical Exam. Due on due Goal Pre-Diabetes Scr eener. Due on due Goal Pap Image Guided , rfx HPV ASCU. Due on due Goal SBIRT. Due on du e Goal BMI Plan. Due on due Goal Pap/HPV Testing. Due on due Goal Pap. Due on due Goal Fall Risk Plan. Due on due Goal Depression scree amado. Due on due Goal SBIRT. Due on du e Goal Pap Image Guided , rfx HPV ASCU. Due on due Goal Depression scree amado. Due on due Goal Dental exam. Due on due Goal Pap. Due on due Goal Pre-Diabetes Scr eener. Due on due Goal HPV. Due on due Goal Annual Physical Exam. Due on due Goal Eye Exam. Due on due Goal PHQ9. Due on due Goal Pap/HPV Testing. Due on due Goal BMI Plan. Due on due Goal Fall Risk Plan. Due on due Goal Hepatitis C scre ening. Due on due Goal Pre-Diabetes Scr eener. Due on due Goal Depression scree amado. Due on due Goal Hepatitis C scre ening. Due on due Goal HPV. Due on due Goal BMI Plan. Due on due Goal Eye Exam. Due on due Goal Annual Physical Exam. Due on due Goal SBIRT. Due on du e Goal Pap/HPV Testing. Due on due Goal Pap. Due on due Goal PHQ9. Due on due Goal Dental exam. Due on due Goal Fall Risk Plan. Due on due Goal Pap Image Guided , rfx HPV ASCU. Due on due Goal Dental exam. Due on due Goal SBIRT. Due on du e Goal Pap/HPV Testing. Due on due Goal Pap Image Guided , rfx HPV ASCU. Due on due Goal Eye Exam. Due on due Goal PHQ9. Due on due Goal Fall Risk Plan. Due on due Goal Hepatitis C scre ening. Due on due Goal Annual Physical Exam. Due on due Goal BMI Plan. Due on due Goal Pre-Diabetes Scr eener. Due on due Goal HPV. Due on due Goal Depression scree amado. Due on due Goal Pap. Due on due Goal Hepatitis C scre ening. Due on due Goal Pap Image Guided , rfx HPV ASCU. Due on due Goal Annual Physical Exam. Due on due Goal BMI Plan. Due on due Goal Pap. Due on due Goal Pre-Diabetes Scr eener. Due on due Goal HPV. Due on due Goal Pap/HPV Testing. Due on due Goal Dental exam. Due on due Goal PHQ9. Due on due Goal Fall Risk Plan. Due on due Goal Eye Exam. Due on due Goal SBIRT. Due on du e Goal Depression scree amado. Due on due Goal PHQ9. Due on due Goal Depression scree amado. Due on due Goal Pap/HPV Testing. Due on due Goal Eye Exam. Due on due Goal Pap. Due on due Goal Hepatitis C scre ening. Due on due Goal Annual Physical Exam. Due on due Goal Dental exam. Due on due Goal Pre-Diabetes Scr eener. Due on due Goal Pap Image Guided , rfx HPV ASCU. Due on due Goal BMI Plan. Due on due Goal SBIRT. Due on du e Goal HPV. Due on due Goal Fall Risk Plan. Due on due Goal Annual Physical Exam. Due on due Goal SBIRT. Due on du e Goal Pre-Diabetes Scr eener. Due on due Goal Pap/HPV Testing. Due on due Goal Hepatitis C scre ening. Due on due Goal Dental exam. Due on 025 due Goal Eye Exam. Due on due Goal Depression scree amado. Due on due Goal Pap. Due on due Goal BMI Plan. Due on due Goal HPV. Due on due Goal Pap Image Guided , rfx HPV ASCU. Due on due Goal Fall Risk Plan. Due on due Goal PHQ9. Due on due Goal Pre-Diabetes Scr eener. Due on due Goal Pap Image Guided , rfx HPV ASCU. Due on due Goal Depression scree amado. Due on due Goal Eye Exam. Due on due Goal Hepatitis C scre ening. Due on due Goal Fall Risk Plan. Due on due Goal Annual Physical Exam. Due on due Goal HPV. Due on due Goal PHQ9. Due on due Goal Dental exam. Due on 025 due Goal BMI Plan. Due on due Goal SBIRT. Due on du e Goal Lifestyle educat ion regarding diet completed Referral Ordered: BIOPHYS PROFILE W/NST ordered Referral Ordered: OB US FOLLOW-UP PER FETUS Appointment date/timeframe: 08/28/2024 ordered Referral Ordered: OB US >/= 14 WKS SNGL FETUS Appointment date/timeframe: 08/03/2024 ordered Referral Ordered: TRANSVAGINAL US OBSTETRIC Appointment date/timeframe: 05/18/2024 ordered Referral Ordered: PFT Appointment date/timeframe: 03/22/2012 ordered Patient Education Tubal Ligation : What to Expect at Home completed Patient Education Tubal Ligation : Before Your Surgery completed Patient Education Secti on: What to Expect at Home completed Patient Education Secti on: Before Your Surgery completed Future Order: Radiology Order FE RAFAEL BIOPHYS PROFILE W/NST ([id number]), Ordered on: Ordered Future Order: Radiology Order FE RAFAEL BIOPHYS PROFILE W/NST ([id number]), Ordered on: Ordered Future Order: Radiology Order FE RAFAEL BIOPHYS PROFILE W/NST ([id number]), Ordered on: Ordered Future Order: Radiology Order FE RAFAEL BIOPHYS PROFILE W/NST ([id number]), Ordered on: Ordered Future Order: Radiology Order FE RAFAEL BIOPHYS PROFILE W/NST ([id number]), Ordered on: Ordered Future Order: Radiology Order FE RAFAEL BIOPHYS PROFILE W/NST ([id number]), Ordered on: Ordered Future Order: Radiology Order OB US FOLLOW-UP PER FETUS ([id number]), Ordered on: Ordered Future Order: Lab Order Urine PC R-Healt[facility] (OB) (UPCR-HTRX), Collected on: Ordered Future Order: Lab Order Urine PC R-[facility]alt[facility] (OB) ([id number]-HTRX), Collected on: Ordered Future Order: Lab Order Vitamin B12 and Folate ([id number]), Collected on: , Sent on: Sent Future Order: Radiology Order OB US FOLLOW-UP PER FETUS ([id number]), Ordered on: Ordered Future Order: Radiology Order OB US FOLLOW-UP PER FETUS ([id number]), Ordered on: Ordered Future Order: Radiology Order OB US >/= 14 WKS SNGL FETUS ([id number]), Ordered on: Ordered Future Order: Radiology Order TR ANSVAGINAL US OBSTETRIC ([id number]), Ordered on: Ordered Future Order: Radiology Order Tr ansvaginal OB ([id number]), Sent on: Sent History Of Present Illness Encounter Date Complaint History Of Prese nt Illness Weight check Patient here for weight check. Has been taking meclizine daily, states she is now able to eat. denies nausea or vomiting. medication list reviewed. reminded patient to keep f/u with Dr. Banks 07/11/2024 and to call with any new questions/concerns. patient voiced understanding. thankful for the assistance. 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 Functional Status Date Functional Assessmen t No Information Instructions Date Instruction Additional Infor daisha childbirth classes / hospital facilities influenza vaccine seat belt use alcohol illicit / recreational drugs use of any medicatio ns (including supplements, vitamins, herbs, OTC drugs) smoking counseling domestic violence Lifestyle education regarding di et Related to Body mass index [BMI] 45.0-49.9, adult HIV and other routine t ests risk factors identif ied by history anticipated course of c are nutrition and weight gain counseling, special diet toxoplasmosis precau tions (cats / raw meat) sexual activity exercise indications for ultrasound environmental / work hazards travel tobacco (ask, advise , assess, assist and arrange) smoking counseling domestic violence use of any medicatio ns (including supplements, vitamins, herbs, OTC drugs) illicit / recreational drugs alcohol tobacco (ask, advise , assess, assist and arrange) travel environmental / work hazards influenza vaccine indications for ultrasound exercise sexual activity toxoplasmosis precau tions (cats / raw meat) nutrition and weight gain counseling, special diet anticipated course of c are risk factors identif ied by history HIV and other routine t ests seat belt use childbirth classes / hospital facilities Assessments Type Assessment Date No Information Patient Care Teams Name Effective Dates (start - stop) Status Members No Information
[2025-03-19 18:30] VITALS: BP 144/84; PULSE 84; RESP 16; TEMP 36.7; O2SAT 99; BMI 54.8
--- OUTSIDE RECORDS SUMMARY | 2025-03-19 18:31 | XMS_ITS | Patient Health Record ---
Author Organization [facility] Address [address], [place] [id number] Care Team Providers Care Mold Maker Name Role Phone Yunier Greenberg DO Unavailable Reason For Referral No Information Problems Problem Type SNOMED Code ICD Code Onset Dates Problem Status W/U Status Risk Notes Problem Asthma (798621634) Other asthma (J45.998) Active confirmed Plan Of Treatment No Information Insurance Providers Payer Name Payer Address Payer Phone Subscriber Number Group Number Insured Name Patient Relationship to Insured Coverage Start Date Coverage End Date Home [employer] Plan [address] [place], [place] [id number] Kristin Mcclellan Self - patient is the insured
--- NOTE | 2025-03-19 18:35 | ED.C_ITS ---
HPI - Psych 2 General: Chief Complaint: Psychiatric Symptoms Stated Complaint: SI Time Seen by Provider: 03/19/25 18:28 Source: patient Mode of arrival: ambulatory Limitations: no limitations History of Present Illness: Patient is a 34-year-old female with past medical history of schizophrenia, cocaine use disorder, and borderline personality disorder who presents to the emergency department complaining of suicidal ideations. States that she has been without her medications for 3 months, currently lives with her but they have been fighting a lot recently and this has caused her to have an increase in SI. She has no specific plan, she states that she knows it is from her medications and not being able to obtain them. She does not tell me why she has been able to take them, possibly indicates it is because of insurance purposes but also states she has not been able to get into [facility] for an appointment. No HI, tells me she has auditory hallucinations but that this is normal for her due to her history of schizophrenia. States that she needs to come into the neuropsychiatric unit for reevaluation and to restart medications. MD complaint: suicidal ideation Onset (ago): month(s) (3) Duration: constant and getting worse History of same: Yes Context: not taking psychiatric medications Associated symptoms: Reports auditory hallucinations and suicidal ideation; Deny visual hallucinations or homicidal ideation Related Data Home Medications ?Medication ?Instructions ?Recorded ?Confirmed budesonide-formoterol HFA 80 See Rx Instructions .Rout e .COMPLEX 11/25/19 11/29/24 mcg-4.5 mcg/actuation aerosol inhaler (Symbicort) montelukast 10 mg tablet 10 mg PO DAILY 11/25/1911/03 duloxetine 30 mg capsule,delayed 90 mg PO DAILY 11/29/24 release Previous Rx's ?Medication ?Instructions ?Recorded albuterol sulfate 90 mcg/actuation 2 inh inhalation Q4 H PRN shortness 04/11/21 aerosol inhaler of breath or wheezing #18 gr ams oxycodone-acetaminophen 5 mg-325 1 tab PO Q8H PRN pain #20 tabs 12/06/24 mg tablet (Percocet) Allergies Allergy/AdvReac Type Severity Reaction Status Date / Time cephalexin (From Keflex) Allergy Severe ALGY-Swell Verified 11/29/24 16:06 Lip/Tongue/Throat Penicillins Allergy Severe ALGY-Swell Verified 11/29/24 16:06 Lip/Tongue/Throat lactase (From Dairy Aid) Allergy lactose Verified 11/29/24 16:06 intolerant Review of Systems 2 General: Reports: 10 or more systems reviewed and unremarkable except in HPI and below Const: Denies: fever(s), chills or fatigue Eyes: Denies: change in vision ENMT: Denies: throat pain, ear or mastoid pain or nasal discharge Card: Denies: chest pain, palpitations, swelling of feet/ankles or lightheadedness Resp: Denies: dyspnea, productive cough or wheezing GI: Denies: abdominal pain, nausea, vomiting, diarrhea or constipation : Denies: flank pain, difficulty voiding, dysuria or urinary frequency Musc: Denies: neck pain, back pain or joint pain Skin/Breast: Denies: rash Neuro: Denies: headache(s), numbness in extremities or weakness in extremities Psych: Reports: auditory hallucinations and suicidal ideation; Denies: visual hallucinations, tactile hallucinations or homicidal ideation PFSH ED 2 PFSH: Medical History Poor patient attendance of care Dental abscess COVID Asthma Cocaine use disorder, severe, in sustained remission Major depressive disorder, recurrent, moderate Generalized anxiety disorder Borderline personality disorder Family History Mother Hyperlipidemia Thyroid disease Grandmother Heart disease Hyperlipidemia Hypertension Social History Smoking and tobacco/nicotine status: never used tobacco/nicotine Alcohol intake: never Substance/Drug Use: never Current gender identity: Female Physical Exam 2 Const: COMMON NORMALS: no limitations GENERAL APPEARANCE: cooperative and anxious NUTRITIONAL APPEARANCE: obese morbidly obese O RIENTATION/CONSCIOUSNESS: Yes awake HENMT: COMMON NORMALS: normocephalic, atraumatic and hearing grossly normal bilaterally HEAD & SCALP: normocephalic and atraumatic Eye: COMMON NORMALS: Equal, round and reactive pupils present, EOMs intact bilaterally and conjunctivae normal CONJUNCTIVA: Yes conjunctivae normal P UPIL: Yes Equal, round and reactive pupils present Neck/C-Spine: COMMON NORMALS: full ROM, supple and no JVD Resp: COMMON NORMALS: normal respiratory effort, No retractions, No use of accessory muscles and clear to auscultation bilaterally AUSCULTATION: clear to auscultation bilaterally Cardio: COMMON NORMALS: no JVD, regular rate, regular rhythm, No clicks present (Cardio), No murmurs present (Cardio) and No rub (Cardio) RATE: r egular rate RHYTHM: regular rhythm Extremity: COMMON NORMALS: normal to inspection, full ROM and capillary refill normal Psych: COMMON NORMALS: mental status grossly normal, Normal thought process present and speech normal APPEARANCE: Yes unkempt ACTIVITY/MOTOR BEHAVIOR: Yes appropriate eye contact SPEECH: Yes normal speech MOOD & AFFECT: Yes tearful THOUGHT PROCESS: Normal thought process present THOUGHT CONTENT: Y es Suicidality present, No Homicidality present and Yes Hallucination(s) present auditory Skin: COMMON NORMALS: no rashes or lesions noted GENERAL SKIN EXAM: no rashes or lesions noted Course 2 Vital Signs: Vital signs: Vital Signs Temperature 98.0 F 03/19/25 18:30 Pulse Rate 84 03/19/25 18:30 Respiratory Rate 16 03/19/25 18:30 Blood Pressure 144/84 03/19/25 18:30 Pulse Oximetry 99 03/19/25 18:30 Oxygen Delivery Me thod Room Air 03/19/25 18:30 MDM - Psych Medical Decision Making Please refer to above HPI for patient's presenting complaint, has been SI for 3 months since being off her medications. Cleared medically will transfer to neuropsychiatric unit for further evaluation, Dr. Carmen is admitting provider. Dr. Peña to place admit orders. Lab Data 03/19/25 18:55 03/19/25 18:55 Laboratory Results WBC 5.91 10^3/uL (3.29-11.43) 03/19/25 18:55 RBC 4.01 10^6/uL (3.85-5.65) 03/19/25 18:55 Hgb 10.30 g/dL (11.27-16.99) L 03/19/25 18:55 Hct 33.8 % (36-47) L 03/19/25 18:55 MCV 84.3 fl (85-98) L 03/19/25 18:55 MCH 25.7 pg (27-33) L 03/19/25 18:55 MCHC 30.5 g/dL (30-55) 03/19/25 18:55 RDW 14.5 % (12.1-15.1) 03/19/25 18:55 Plt Count 220 10^3/cmm (157-399) 03/19/25 18:55 MPV 9.6 fL (7.4-10.4) 03/19/25 18:55 Neut % (Auto) 64.0 % 03/19/25 18:55 Lymph % (Auto) 15.2 % 03/19/25 18:55 Fergus % (Auto) 12.7 % 03/19/25 18:55 Eos % (Auto) 7.1 % 03/19/25 18:55 Baso % (Auto) 0.5 % 03/19/25 18:55 Neut # (Auto) 3.78 10^3/uL (1.8-7.7) 03/19/25 18:55 Lymph # (Auto) 0.9 10^3/uL (0.8-4.8) 03/19/25 18:55 Fergus # (Auto) 0.8 10^3/uL (0.2-0.9) 03/19/25 18:55 Eos # (Auto) 0.4 10^3/uL (0.0-0.8) 03/19/25 18:55 Baso # (Auto) 0.0 10^3/uL (0.0-0.1) 03/19/25 18:55 Nucleated RBC % (auto) 0 % 03/19/25 18:55 Nucleated RBCs # 0.0 /100WBC 03/19/25 18:55 Sodium 138 mmol/L (136-145) 03/19/25 18:55 Potassium 3.9 mmol/L (3.5-5.1) 03/19/25 18:55 Chloride 103 mmol/L (98-107) 03/19/25 18:55 Carbon Dioxide 23 mmol/L (22-29) 03/19/25 18:55 Anion Gap 15.9 (5-19) 03/19/25 18:55 BUN 20 mg/dL (6-20) 03/19/25 18:55 Creatinine 0.7 mg/dL (0.5-0.9) 03/19/25 18:55 GFR Calculation 95.8 mL/min (90-130) 03/19/25 18:55 Glucose 108 mg/dL (65-115) 03/19/25 18:55 Calculated Osmolality 289 mOsm/kg (285-295) 03/19/25 18:55 Calcium 8.8 mg/dL (8.5-10.5) 03/19/25 18:55 Total Bilirubin 0.2 mg/dL (0.15-1.2) 03/19/25 18:55 AST 13 U/L (0-32) 03/19/25 18:55 ALT 15 U/L (0-33) 03/19/25 18:55 Alkaline Phosphatase 80 U/L (35-105) 03/19/25 18:55 Total Protein 6.4 g/dL (6.6-8.7) L 03/19/25 18:55 Albumin 4.0 g/dL (3.5-5.2) 03/19/25 18:55 Globulin 2.4 g/dL (1.3-4.6) 03/19/25 18:55 HCG, Qual Negative (Negative) 03/19/25 18:55 Salicylates < 0.3 mg/dL (3-10) L 03/19/25 18:55 Urine Opiates Screen Negative ng/mL (Negative) 03/19/25 18:36 Acetaminophen < 5.0 ug/mL (10-30) L 03/19/25 18:55 Ur Barbiturates Screen Negative ng/mL (Negative) 03/19/25 18:36 Ur Phencyclidine Scrn Negative ng/mL (Negative) 03/19/25 18:36 Ur Amphetamines Screen Negative ng/mL (Negative) 03/19/25 18:36 U Benzodiazepines Scrn Negative ng/mL (Negative) 03/19/25 18:36 Urine Cocaine Screen Negative ng/mL (Negative) 03/19/25 18:36 U Marijuana (THC) Screen Positive ng/mL (Negative) H 03/19/25 18:36 Ethyl Alcohol < 10 mg/dL (0-10) 03/19/25 18:55 No radiology studies performed this visit Discharge Plan Discharge Patient Disposition: Admitted As Inpatient Clinical Impression: Suicidal ideation Condition: Stable Coding Level of Care Code ED News Assistant for Argelia Powers
[2025-03-19 18:57] LABS: PCP Screen Urine Negative (Negative)
[2025-03-19 19:04] LABS: Hematocrit 33.8 % (36-47); Hemoglobin 10.30 g/dL (11.27-16.99); Mean Corpuscular HGB Conc 30.5 g/dL (30-55); Mean Corpuscular Hemoglobin 25.7 pg (27-33); Mean Corpuscular Volume 84.3 fl (85-98); Nucleated Red Blood Cells % 0 %; Platelet Count 220 10^3/cmm (157-399); Red Blood Count 4.01 10^6/uL (3.85-5.65); White Blood Count 5.91 10^3/uL (3.29-11.43)
--- NOTE | 2025-03-19 19:13 | PC.NURSE ---
bedside report given to Eleanor SONG
[2025-03-19 19:24] LABS: Alanine Aminotransferase 15 U/L (0-33); Albumin Level 4.0 g/dL (3.5-5.2); Alkaline Phosphatase 80 U/L (35-105); Anion Gap 15.9 (5-19); Aspartate Amino Transferase 13 U/L (0-32); Blood Urea Nitrogen 20 mg/dL (6-20); Calcium 8.8 mg/dL (8.5-10.5); Carbon Dioxide 23 mmol/L (22-29); Chloride 103 mmol/L (98-107); Globulin 2.4 g/dL (1.3-4.6); Glucose 108 mg/dL (65-115); HCG, Serum Qual Negative (Negative); Osmolality Calculated 289 mOsm/kg (285-295); Potassium 3.9 mmol/L (3.5-5.1); Sodium 138 mmol/L (136-145); Total Protein 6.4 g/dL (6.6-8.7)
[2025-03-19 19:29] LABS: Acetaminophen < 5.0 ug/mL (10-30); Alcohol Level < 10 mg/dL (0-10); Salicylate < 0.3 mg/dL (3-10)
[2025-03-19 22:45] VITALS: BP 194/156; PULSE 86; RESP 14; TEMP 37.1; O2SAT 96
[2025-03-19 23:20] VITALS: BP 161/76; PULSE 90; O2SAT 92
[2025-03-19 23:45] VITALS: BP 126/75; PULSE 90; RESP 18; TEMP 36.4; O2SAT 95
[2025-03-20 00:08] VITALS: BP 126/75; PULSE 90; O2SAT 95
[2025-03-20 00:11] VITALS: BP 126/75; PULSE 90; O2SAT 95
[2025-03-20 06:00] VITALS: BP 145/77; PULSE 77; RESP 18; TEMP 36.6; O2SAT 95
--- NOTE | 2025-03-20 06:04 | PC.NURSE ---
Pt skin in tact and was very calm and cooperative. N
--- NOTE | 2025-03-20 06:07 | PC.NURSE ---
No issues with patient skin assessment. Pt was calm and cooperative.
--- NOTE | 2025-03-20 06:10 | PC.ADMIT ---
[email or web address] Admission Note: The patient,Kristin Mcclellan,34 y/o, was given written information regarding hospital policies, unit procedures and contact persons. Patient's smoking status: never smoked. Vital Signs - 8 hr 03/19/25 22:45 03/19/25 23:20 03/19/25 23:45 Temperature 98.7 F 97.6 F Pulse Rate 86 90 90 Respiratory Rate 14 18 Blood Pressure 194/156 161/76 126/75 Pulse Oximetry 96 92 95 Oxygen Delivery Method Room Air Room Air Room Air 03/20/25 00:08 03/20/25 00:11 Temperature Pulse Rate 90 90 Respiratory Rate Blood Pressure 126/75 126/75 Pulse Oximetry 95 95 Oxygen Delivery Method Room Air No issues with patient skin assessment. Pt was calm and cooperative.
--- NOTE | 2025-03-20 09:00 | PC.NURSE ---
Pt states that she has asthma. Dr. Mott okayed for pt to have albuterol PRN. Put in order and called respiratory to come down and give.
[2025-03-20 09:35] VITALS: PULSE 78; RESP 16; O2SAT 97
[2025-03-20 14:00] VITALS: BP 133/68; PULSE 73; RESP 18; TEMP 37; O2SAT 98
--- NOTE | 2025-03-20 14:28 | PC.NURSE ---
V/O Dr. Mott for Vraylar 4.5 mg PO capsule daily called to outpatient pharmacy so it could be carried to [facility] pharmacy and delivered to here for pt to use.
--- NOTE | 2025-03-20 16:17 | W.PM.NPUH&PS ---
Providers/Chief Complaint Admitting Physician: Naseem Mott MD Chief Complaint: SI HPI NPU History of Present Illness Kristin Mcclellan is a 34 year old female with a past history of borderline personality disorder, schizophrenia, and cognitive impairment who presented to the emergency department with complaints of having suicidal ideation. She reports that she has been feeling more depressed due to her not being on her medications for the past 3 months. She reports that she had previously been residing in [facility] but moved to [place] to be closer to her sister and states that she has not had her medications since that time. She reports that the voices have been present and states that she has been hearing voices for many years. She reports that she has chronic problems with being suicidal and reports that she has been feeling more depressed. She reports that she has problems with being angered easily and states that she has a history of being in unstable relationships. She also reports that she has had problems with getting along with others. She endorses no clear history of manic symptoms. She reports that she often has anger problems and states that she has had previous attempts at trying to harm herself. She describes being impulsive and states that she often makes bad decisions. She had reported a past history of having an overdose. She reports that she is frequently sad. She reported a past history of drug abuse but states that she is currently not using any drugs other than marijuana. She was unable to provide information as to why she had not taken her psychiatric medications but reported that she needed to get back on her Cymbalta and Vraylar as previously prescribed. She had reported a past history of significant stimulant abuse but reports not having used cocaine in several months. Patient reports having severe problems with perceived or real abandonment. She reports that she is frequently feeling let down by others. She reports that she has problems with becoming angered very easily. Inpatient psychiatric history: She reports a history of multiple inpatient psychiatric hospitalizations. She was unable to recall her last psychiatric hospitalization. Outpatient psychiatric history: She reports not having received services on an outpatient basis over the past 6 months but had previously been receiving treatment near [facility]. She had reported a history of multiple medication trials. Previous diagnoses included stimulant abuse disorder, borderline personality disorder, schizophrenia and mild to moderate intellectual disability. She is currently not receiving any psychotherapy. Substance abuse history: She denies any current substance use other than marijuana. She has a past history of stimulant abuse. She had reported an unclear history of substance abuse treatment in the past. She reports that she does not drink alcohol. There is reports that she had received some substance abuse treatment in December 2018. Medical history: Asthma Surgical history: , right knee surgery, right ear tube placement Allergies: Keflex, penicillin, lactase Medications: Singulair, Symbicort, albuterol Legal history: None reported Family psychiatric history: Schizophrenia and bipolar disorder reported history: None Social history: Patient had required special education classes with a history of learning disabilities. She had a history of mild to moderate cognitive impairment. She has reported having problems with self-care and states that she is currently . She reports that she is the middle child of 5 children. She reports her parents were but her father had in 2019. Meds NPU Home Medications ?Medication ?Instructions ?Recorded ?Confirmed ?Last Taken ?Type budesonide-formoterol HFA 80 See Rx Instructions .Route .COMPLEX 11/25/19 11/29/24 Unknown History mcg-4.5 mcg/actuation aerosol inhaler (Symbicort) montelukast 10 mg tablet 10 mg PO DAILY 11/25/19 11/29/24 11/25/19 History albuterol sulfate 90 mcg/actuation 2 inh inhalation Q4H PRN shortness 04/11/21 11/29/24 Unknown Rx aerosol inhaler of breath or wheezing #18 grams duloxetine 30 mg capsule,delayed 90 mg PO DAILY 11/29/24 11/29/24 Unknown History release oxycodone-acetaminophen 5 mg-325 1 tab PO Q8H PRN pain #20 tabs 12/06/24 Unknown Rx mg tablet (Percocet) cariprazine 4.5 mg capsule mg 03/20/25 03/20/25 Unknown History (Vraylar) Allergies Allergy/AdvReac Type Severity Reaction Status Date / Time cephalexin (From Keflex) Allergy Severe ALGY-Swell Verified 11/29/24 16:06 Lip/Tongue/Throat Penicillins Allergy Severe ALGY-Swell Verified 11/29/24 16:06 Lip/Tongue/Throat lactase (From Dairy Aid) Allergy lactose Verified 11/29/24 16:06 intolerant PFSH NPU PFSH: Medical History (Updated 03/20/25 @ 16:40 by Naseem Mott MD) Poor patient attendance of care Dental abscess COVID Asthma Cocaine use disorder, severe, in sustained remission Major depressive disorder, recurrent, moderate Generalized anxiety disorder Borderline personality disorder Family History Mother Hyperlipidemia Thyroid disease Grandmother Heart disease Hyperlipidemia Hypertension Social History Smoking and tobacco/nicotine status: never used tobacco/nicotine Alcohol intake: never Substance/Drug Use: never Current gender identity: Female Mental Status Exam MSE Comments: She is a casually dressed female who is obese and appeared older than her stated age with fair eye contact. Her gait appeared within normal limits. Her hygiene appeared poor. There was no evidence of any abnormal involuntary motor movements, tics, or tremors appreciated. Her speech was slow and steady with normal volume. Her mood was described as depressed. Her affect was restricted in range and mood congruent. Her thought process was linear, logical, and goal-directed. Her thought content revealed suicidal ideation but no homicidal ideation. She endorsed hearing voices but was unable to elucidate what they were saying to her. She did not appear to be responding to internal stimuli. Her attention span was impaired. She was alert and oriented to person and place. Her recent and remote memory were poor. Her insight and judgment were limited. Her impulse control appeared poor. Vitals/I&O/Wt Last Vital Signs Temp 98.6 F 03/20/25 14:00 Pulse 73 03/20/25 14:00 Resp 18 03/20/25 14:00 BP 133/68 03/20/25 14:00 Pulse Ox 98 03/20/25 14:00 O2 Del Method Room Air 03/20/25 14:00 Weight last 48 hrs Weight 158.757 kg Data NPU 03/19/25 18:55 03/19/25 18:55 A&P Assessment and plan 1. Major depressive disorder, recurrent, moderate: 2. Borderline personality disorder: 3. Schizophrenia: 4. Suicidal ideation: Plan: 34-year-old female with a history of schizophrenia and borderline personality disorder along with depression currently requesting a restart in her psychiatric medications with recent move here from [place] with no reestablishment of services yet for her. #1.? Engage patient in individual milieu and group therapy. #2?? Recommend sober living treatment at the highest level of care to which the patient is willing to commit #3??? Restart outpatient medications including Vraylar 4.5mg daily and Cymbalta 90mg daily. ? #4?? TO-15 minute checks? #5?? Will attempt to gather collateral information PDMP PDMP Reviewed: Not Reviewed Involuntary Hold Information Hold Status: Date/Time Hold Expires: vol Attestations NPU Medical Necessity Statement*: Inpatient psychiatric hospitalization is medically necessary and deemed to be the clinically appropriate decision at this time. Patient will be started on medication and medications will be adjusted accordingly. The patient will be in the hospital for at least 2 midnights. The patient's likely length of stay is 4 to 6 days. Coding Level of Care Code Acute Code for Chg Fwd Diagnoses Major depressive disorder, recurrent, moderate F33.1 Borderline personality disorder F60.3 Schizophrenia F20.9 Suicidal ideation R45.851
[2025-03-20] MEDS: VRAYLAR 1.5 MG CAPSULE 1 EACH PO (16:56)
[2025-03-20] MEDS: VRAYLAR 3 MG CAPSULE 1 EACH PO (16:56)
[2025-03-20 20:34] VITALS: BP 126/83; PULSE 73; RESP 16; TEMP 36.7; O2SAT 97
[2025-03-21 06:00] VITALS: BP 138/81; PULSE 82; RESP 18; TEMP 37.1; O2SAT 96
[2025-03-21] MEDS: VRAYLAR 3 MG CAPSULE 1 EACH PO (08:09)
[2025-03-21] MEDS: VRAYLAR 1.5 MG CAPSULE 1 EACH PO (08:09)
[2025-03-21 14:00] VITALS: BP 116/79; PULSE 89; RESP 17; TEMP 37.2; O2SAT 96
--- NOTE | 2025-03-21 16:45 | P.NPUPN_ITS ---
Subjective NPU 2 Subjective: 34-year-old female with mild cognitive i mpairment, borderline personality disorder, PTSD and schizophrenia admitted with suicidal ideation. Patient had reported that she was feeling better now that she was back on her medications. She had reported that the voices had been calmer. She reports that she had been angry that a friend of hers had attempted to sleep with her . She reported having a at home and stated that she had been feeling less hopeless. She reported no side effects from her current medication regimen. Mental Status Exam 2 MSE Comments: She is a casually dressed female who is obese and appeared older than her stated age with fair eye contact. Her gait appeared within normal limits. Her hygiene appeared poor. There was no evidence of any abnormal involuntary motor movements, tics, or tremors appreciated. Her speech was slow and steady with normal volume. Her mood was described as okay today. Her affect was restricted in range and mood congruent. Her thought process was linear, logical, and goal-directed. Her thought content revealed suicidal ideation but no homicidal ideation. She denied auditory or visual hallucinations today. She did not appear to be responding to internal stimuli. Her attention span was fair. She was alert and oriented to person and place. Her recent and remote memory were poor. Her insight and judgment were limited. Her impulse control appeared poor. Vitals/I&O/Wt Last Vital Signs Temp 98.9 F 03/21/25 14:00 Pulse 89 03/21/25 14:00 Resp 17 03/21/25 14:00 BP 116/79 03/21/25 14:00 Pulse Ox 96 03/21/25 14:00 O2 Del Method Room Air 03/21/25 06:00 Weight last 48 hrs Weight 158.757 kg Data NPU 03/19/25 18:55 03/19/25 18:55 A&P Assessment and plan 1. Major depressive disorder, recurrent, moderate: 2. Borderline personality disorder: 3. Schizophrenia: 4. Suicidal ideation: Plan: 34-year-old female with a history of schizophrenia and borderline personality disorder along with depression currently requesting a restart in her psychiatric medications with recent move here from [place] with no reestablishment of services yet for her. #1.? Engage patient in individual milieu and group therapy. #2?? Recommend sober living treatment at the highest level of care to which the patient is willing to commit #3??? Continue Vraylar 4.5mg daily and Cymbalta 90mg daily. ? #4?? TO-15 minute checks? #5?? Will attempt to gather collateral information PDMP PDMP Reviewed: Not Reviewed Involuntary Hold Information 2 Hold Status: Date/Time Hold Expires: vol Attestations NPU 2 Medical Necessity Statement*: Inpatient psychiatric hospitalization is medically necessary and deemed to be the clinically appropriate decision at this time. Patient will be started on medication and medications will be adjusted accordingly. The patient's likely length of stay is 4 to 6 days. Coding Level of Care Code Acute Code for Chg Fwd Diagnoses Major depressive disorder, recurrent, moderate F33.1 Borderline personality disorder F60.3 Schizophrenia F20.9 Suicidal ideation R45.851
[2025-03-21 20:24] VITALS: BP 129/82; PULSE 72; RESP 18; TEMP 37.1; O2SAT 98
[2025-03-22 06:00] VITALS: BP 122/70; PULSE 69; RESP 18; TEMP 36.7; O2SAT 97
[2025-03-22] MEDS: VRAYLAR 3 MG CAPSULE 1 EACH PO (07:57)
[2025-03-22] MEDS: VRAYLAR 1.5 MG CAPSULE 1 EACH PO (07:57)
--- NOTE | 2025-03-22 13:09 | P.NPUDS_ITS ---
Diagnoses at Discharge Discharge Diagnosis 1. Major depressive disorder, recurrent, moderate: 2. Schizophrenia: 3. Suicidal ideation: Reason for Visit Reason for Visit: SI Brief History: History of Present Illness Kristin Mcclellan is a 34 year old female with a past history of borderline personality disorder, schizophrenia, and cognitive impairment who presented to the emergency department with complaints of having suicidal ideation. She reports that she has been feeling more depressed due to her not being on her medications for the past 3 months. She reports that she had previously been residing in [facility] but moved to [place] to be closer to her sister and states that she has not had her medications since that time. She reports that the voices have been present and states that she has been hearing voices for many years. She reports that she has chronic problems with being suicidal and reports that she has been feeling more depressed. She reports that she has problems with being angered easily and states that she has a history of being in unstable relationships. She also reports that she has had problems with getting along with others. She endorses no clear history of manic symptoms. She reports that she often has anger problems and states that she has had previous attempts at trying to harm herself. She describes being impulsive and states that she often makes bad decisions. She had reported a past history of having an overdose. She reports that she is frequently sad. She reported a past history of drug abuse but states that she is currently not using any drugs other than marijuana. She was unable to provide information as to why she had not taken her psychiatric medications but reported that she needed to get back on her Cymbalta and Vraylar as previously prescribed. She had reported a past history of significant stimulant abuse but reports not having used cocaine in several months. Patient reports having severe problems with perceived or real abandonment. She reports that she is frequently feeling let down by others. She reports that she has problems with becoming angered very easily. Inpatient psychiatric history: She reports a history of multiple inpatient psychiatric hospitalizations. She was unable to recall her last psychiatric hospitalization. Outpatient psychiatric history: She reports not having received services on an outpatient basis over the past 6 months but had previously been receiving treatment near [facility]. She had reported a history of multiple medication trials. Previous diagnoses included stimulant abuse disorder, borderline personality disorder, schizophrenia and mild to moderate intellectual disability. She is currently not receiving any psychotherapy. Substance abuse history: She denies any current substance use other than marijuana. She has a past history of stimulant abuse. She had reported an unclear history of substance abuse treatment in the past. She reports that she does not drink alcohol. There is reports that she had received some substance abuse treatment in December 2018. Medical history: Asthma Surgical history: , right knee surgery, right ear tube placement Allergies: Keflex, penicillin, lactase Medications: Singulair, Symbicort, albuterol Legal history: None reported Family psychiatric history: Schizophrenia and bipolar disorder reported history: None Social history: Patient had required special education classes with a history of learning disabilities. She had a history of mild to moderate cognitive impairment. She has reported having problems with self-care and states that she is currently . She reports that she is the middle child of 5 children. She reports her parents were but her father had in 2019. Hospital Course Hospital Course During the hospitalization, the patient had routine laboratory studies which were within?normal limits except for a few outliers.? Additionally, there was a general medical evaluation which was also within normal limits and revealed no new acute processes. The patient was restarted on her outpatient medications including Cymbalta titrated up to 90 mg a day along with Vraylar at 4.5 mg a day. She showed significant improvement over the next few days to the point that her reported hallucinations appeared to dissipate. At the time of discharge, lethality was denied and psychosis was resolving.? Mood and anxiety were well managed.? The patient endorsed a plan to avoid all drugs of abuse and follow up with the aftercare recommendations of the treatment team.? The patient was evaluated and deemed to be absent credible lethality and had achieved the maximum benefit from an inpatient hospitalization, and so was discharged.? Involuntary Hold Information Hold Status: Date/Time Hold Expires: voluntary Mental Status Exam MSE Comments: She is a casually dressed female who is obese and appeared older than her stated age with fair eye contact. Her gait appeared within normal limits. Her hygiene appeared poor. There was no evidence of any abnormal involuntary motor moveme nts, tics, or tremors appreciated. Her speech was normal in volume and prosody. Her mood was described as better. Her affect was restricted in range and mood congruent. Her thought process was linear, logical, and goal-directed. Her thought content revealed no suicidal ideation or homicidal ideation. She denied auditory or visual hallucinations today. She did not appear to be responding to internal stimuli. Her attention span was fair. She was alert and oriented to person and place and time. Her recent and remote memory were poor. Her insight and judgment were limited. Her impulse control appeared improved. Discharge Data Studies Completed and Pending: Laboratory Results WBC 5.91 10^3/uL (3.2 9-11.43) 03/19/25 18:55 RBC 4.01 10^6/uL (3.8 5-5.65) 03/19/25 18:55 Hgb 10.30 g/dL (11.27 -16.99) L 03/19/25 18:55 Hct 33.8 % (36-47) L 03/19/25 18:55 MCV 84.3 fl (85-98) L 03/19/25 18:55 MCH 25.7 pg (27-33) L 03/19/25 18:55 MCHC 30.5 g/dL (30-55) 03/19/25 18:55 RDW 14.5 % (12.1-15.1 ) 03/19/25 18:55 Plt Count 220 10^3/cmm (157 -399) 03/19/25 18:55 MPV 9.6 fL (7.4-10.4) 03/19/25 18:55 Neut % (Auto) 64.0 % 03/19/25 18:55 Lymph % (Auto) 15.2 % 03/19/25 18:55 [place] % (Auto) 12.7 % 03/19/25 18:55 Eos % (Auto) 7.1 % 03/19/25 18:55 Baso % (Auto) 0.5 % 03/19/25 18:55 Neut # (Auto) 3.78 10^3/uL (1.8 -7.7) 03/19/25 18:55 Lymph # (Auto) 0.9 10^3/uL (0.8- 4.8) 03/19/25 18:55 [place] # (Auto) 0.8 10^3/uL (0.2- 0.9) 03/19/25 18:55 Eos # (Auto) 0.4 10^3/uL (0.0- 0.8) 03/19/25 18:55 Baso # (Auto) 0.0 10^3/uL (0.0- 0.1) 03/19/25 18:55 Nucleated RBC % (a uto) 0 % 03/19/25 18:55 Nucleated RBCs # 0.0 /100WBC 03/19/25 18:55 Sodium 138 mmol/L (136-1 45) 03/19/25 18:55 Potassium 3.9 mmol/L (3.5-5 .1) 03/19/25 18:55 Chloride 103 mmol/L (98-10 7) 03/19/25 18:55 Carbon Dioxide 23 mmol/L (22-29) 03/19/25 18:55 Anion Gap 15.9 (5-19) 03/19/25 18:55 BUN 20 mg/dL (6-20) 03/19/25 18:55 Creatinine 0.7 mg/dL (0.5-0. 9) 03/19/25 18:55 GFR Calculation 95.8 mL/min (90-1 30) 03/19/25 18:55 Glucose 108 mg/dL (65-115 ) 03/19/25 18:55 Calculated Osmolal ity 289 mOsm/kg (285- 295) 03/19/25 18:55 Calcium 8.8 mg/dL (8.5-10 .5) 03/19/25 18:55 Total Bilirubin 0.2 mg/dL (0.15-1 .2) 03/19/25 18:55 AST 13 U/L (0-32) 03/19/25 18:55 ALT 15 U/L (0-33) 03/19/25 18:55 Alkaline Phosphata se 80 U/L (35-105) 03/19/25 18:55 Total Protein 6.4 g/dL (6.6-8.7 ) L 03/19/25 18:55 Albumin 4.0 g/dL (3.5-5.2 ) 03/19/25 18:55 Globulin 2.4 g/dL (1.3-4.6 ) 03/19/25 18:55 HCG, Qual Negative (Negati ve) 03/19/25 18:55 Salicylates < 0.3 mg/dL (3-10 ) L 03/19/25 18:55 Urine Opiates Scre en Negative ng/mL (N egative) 03/19/25 18:36 Acetaminophen < 5.0 ug/mL (10-3 0) L 03/19/25 18:55 Ur Barbiturates Sc reen Negative ng/mL (N egative) 03/19/25 18:36 Ur Phencyclidine S crn Negative ng/mL (N egative) 03/19/25 18:36 Ur Amphetamines Sc reen Negative ng/mL (N egative) 03/19/25 18:36 U Benzodiazepines Scrn Negative ng/mL (N egative) 03/19/25 18:36 Urine Cocaine Scre en Negative ng/mL (N egative) 03/19/25 18:36 U Marijuana (THC) Screen Positive ng/mL (N egative) H 03/19/25 18:36 Ethyl Alcohol < 10 mg/dL (0-10) 03/19/25 18:55 Vitals: Last Vital Signs Temp 98.0 F 03/22/25 06:00 Pulse 69 03/22/25 06:00 Resp 18 03/22/25 06:00 BP 122/70 03/22/25 06:00 Pulse Ox 97 03/22/25 06:00 O2 Del Method Room Air 03/22/25 06:00 Discharge Plan Discharge Patient Disposition: Home Condition: Stable Prescriptions: New duloxetine 30 mg Capsule,Delayed Release(Dr/Ec) 30 mg PO DAILY Qty: 30 2RF Rx Instructions: TDD=90mg/day duloxetine 60 mg Capsule,Delayed Release(Dr/Ec) 60 mg PO DAILY 30 Days Qty: 30 2RF Rx Instructions: TDD=90mg/day trazodone 50 mg Tablet 50 mg PO BEDTIME PRN (Reason: Sleep) 30 Days Qty: 30 1RF Continued montelukast 10 mg tablet 10 mg PO DAILY budesonide-formoterol [Symbicort] 80-4.5 mcg/actuation Hfa Aerosol Inhaler 1 inh inhalation DAILY PRN (Reason: Shortness Of Breath Or Wheezing) albuterol sulfate 90 mcg/actuation HFA aerosol inhaler 2 inh INHALATION Q4H PRN (Reason: shortness of breath or wheezing) Qty: 18 0RF Changed Vraylar 4.5 mg capsule 4.5 mg PO DAILY Qty: 30 1RF Discontinued duloxetine 30 mg capsule,delayed release(DR/EC) 90 mg PO DAILY Discharge Order = DC NOW: Discharge Order (Routine); Ordered 03/22/25 Ordered By: Naseem Mott [facility]00 [facility] [Outside] - 1-3 days Referral Note: call the number listed if you do not receive a call within 3 week days. Discharge Diet: Usual diet Discharge Activity: Resume usual activity Patient Instructions: Trazodone (By mouth), Duloxetine (By mouth), Schizophrenia (GEN), Suicide Prevention (GEN), Opioid Safety, Pain Management, Patient Portal & Eddie Instructions Discharge Attestations NPU Time Spent in Discharge Care*: less than 30 min Specific Discharge Activities: Specific discharge activities: educating patient, discussing with home health care case manager/social workers/dc planners and documenting/other paperwork Coding Level of Care Code Acute Code for Chg Fwd Diagnoses Major depressive disorder, recurrent, moderate F33.1 Borderline personality disorder F60.3 Schizophrenia F20.9 Suicidal ideation R45.853
[2025-03-22 13:24] VITALS: BP 122/70; PULSE 69; RESP 18; TEMP 36.6; O2SAT 97
--- NOTE | 2025-03-22 13:35 | PC.NURSE ---
Patient education reviewed with the patient. All questions answered. Patient left by private vehicle to home.
== END 2025-03-22 13:35 | disposition home or self-care (01) | DRG 750 ==
LOC: ER 20:23 → NP 21:53
PROVIDERS: Admitting Provider Psychiatry & Neurology Psychiatry; Emergency Provider Physician Assistant; Visit Provider Psychiatry & Neurology Psychiatry
DX: F20.9 Schizophrenia, unspecified (principal); F60.3 Borderline personality disorder; R45.851 Suicidal ideations; J45.909 Unspecified asthma, uncomplicated; E66.9 Obesity, unspecified; Z68.43 Body mass index [BMI] 50.0-59.9, adult
CPT/HCPCS: 36415; 80053; 80306; 80307; 84703; 85025; 94640; 97150; 97165; 99285; J7613; J9999